=== PATIENT | male | born 1965 ===

== ENCOUNTER 2021-07-15 12:42 | Outpatient (REF) | payer MEDICAID, SELFPAY ==
--- NOTE | ~2021-07-15 | XR_ITS ---
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 Rule out active TB. COMPARISON: Chest radiograph dated from 01/07/2010. TECHNIQUE: 2 views of the chest were obtained. FINDINGS: Normal appearance of the cardiomediastinal silhouette. Mildly increased interstitial prominence since 2009 with a new nonspecific radiodensity in the right apex superior to the right clavicle no pleural effusion or pneumothorax.. No acute osseous abnormalities. The visualized upper abdomen is within normal limits. XR/XR chest 2V IMPRESSION: Increased interstitial prominence and new nonspecific radiodensity in the right apex. Recommend correlation with a CT of the chest. The report will be called to the ordering clinician by a [facility] Physician Associate Entertainment Editor.
[2021-07-16 11:56] LABS: Hepatitis B Viral DNA Qn - cp <1.00 NOT DETECTED Log IU/mL (NOT DETECTED); Hepatitis B Viral DNA Qn-IU/mL <10 NOT DETECTED IU/mL (NOT DETECTED)
== END 2021-07-15 12:43 | disposition home or self-care (01) ==
LOC: HO.XRAY 12:42
PROVIDERS: Absent Provider Family Medicine; PCP Family Medicine; Visit Provider Registered Nurse Community Health
DX: R76.12 Nonspecific reaction to cell mediated immunity measurement of gamma interferon antigen response without active tuberculosis (principal)
CPT/HCPCS: 36415; 71046; 87517

== ENCOUNTER 2021-07-22 08:23 | Outpatient (REF) | payer MEDICAID, SELFPAY ==
--- NOTE | ~2021-07-22 | XR_ITS ---
EXAMINATION: XR HAND, RIGHT CLINICAL INFORMATION: Pain COMPARISON: None TECHNIQUE: PA, lateral, and oblique views of the right hand. FINDINGS: There is postsurgical change with arthrodesis of the DIP joint of the third finger with pin and cerclage wires. 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 There is an old fracture of the distal tuft of the second finger and question old trauma to the distal tuft of the fourth finger as well. No acute fracture or dislocation. Joint spaces are otherwise normal. Soft tissues are unremarkable. XR/XR hand RT min 3V IMPRESSION: Arthrodesis of the DIP joint of the third finger.
== END 2021-07-22 08:24 | disposition home or self-care (01) ==
LOC: HO.HOSX 08:23
PROVIDERS: Visit Provider Physician Assistant
DX: M79.641 Pain in right hand (principal); Z96.9 Presence of functional implant, unspecified
CPT/HCPCS: 73130; 99202

== ENCOUNTER → 2021-08-11 09:58 | Outpatient (BNVA) | payer MEDICAID, SELFPAY | PROVIDERS: PCP Family Medicine; Visit Provider Orthopaedic Surgery | DX: M79.644 Pain in right finger(s) (principal); R20.0 Anesthesia of skin; R20.2 Paresthesia of skin; Z96.9 Presence of functional implant, unspecified | CPT/HCPCS: 99202 ==

== ENCOUNTER 2021-08-16 15:30 | Outpatient (REF) | payer MEDICAID, SELFPAY ==
--- NOTE | ~2021-08-16 | CT_ITS ---
EXAMINATION: CT CHEST WITHOUT CONTRAST CLINICAL INFORMATION: Positive TB test and abnormal chest x-ray COMPARISON: Previous chest x-ray 07/15/2021 TECHNIQUE: Multidetector volumetric CT imaging of the chest was done. Axial MIP volume rendering provided. Sagittal and coronal reformatted images were obtained. This CT examination was performed using dose optimization techniques as appropriate, variously including the following: *Automated exposure control *Adjustment of mA and/or kV according to patient size (this includes techniques or standardized protocols for targeted exams where dose is matched to indication/reason for exam; i.e. extremities or head) *Use of iterative reconstruction technique DLP: 160 mGy-cm FINDINGS: SPECIALTY DEVELOPMENT CONSULTANT: Unremarkable LUNGS: There is dependent increased attenuation probably representing dependent atelectasis. The lungs are otherwise clear. No evidence of interstitial lung disease is seen. MEDIASTINUM: The heart is upper normal in size. The mediastinum is otherwise normal. No hilar or mediastinal lymphadenopathy is seen. PLEURA: There is no pleural effusion. No pleural mass or thickening. AXILLA: No lymphadenopathy. UPPER ABDOMEN: Unremarkable. OSSEOUS STRUCTURES: Unremarkable. CT/CT chest wo con IMPRESSION: No evidence of TB in the chest. Fleischner guidelines were followed.
== END 2021-08-16 15:31 | disposition home or self-care (01) ==
LOC: HO.CT 15:30
PROVIDERS: PCP Family Medicine; Visit Provider Family Medicine
DX: R76.12 Nonspecific reaction to cell mediated immunity measurement of gamma interferon antigen response without active tuberculosis (principal); R93.89 Abnormal findings on diagnostic imaging of other specified body structures
CPT/HCPCS: 71250

== ENCOUNTER → 2022-03-02 10:18 | Outpatient (BNVA) | payer MEDICAID, SELFPAY | PROVIDERS: PCP Family Medicine; Visit Provider Internal Medicine | DX: R07.2 Precordial pain (principal); R94.31 Abnormal electrocardiogram [ECG] [EKG]; I10 Essential (primary) hypertension; E78.5 Hyperlipidemia, unspecified | CPT/HCPCS: 93005; 99202 ==

== ENCOUNTER 2022-03-22 | Outpatient (REF) | payer MEDICAID, SELFPAY ==
--- NOTE | ~2022-03-22 | XR_ITS ---
EXAMINATION: XR KNEE AP STANDING, BILATERAL XR KNEE, RIGHT CLINICAL INFORMATION: Pain bilateral knee. COMPARISON: None TECHNIQUE: AP bilateral knee standing. Right knee 2 views. FINDINGS: AP BILATERAL KNEE: The medial and lateral compartment joint space is maintained normal. No visible fracture, bony erosive changes or loose bodies. RIGHT KNEE: The patellofemoral compartment joint space is normal. No visible acute fracture, dislocation or subluxation seen. No bony erosive changes. XR/XR knee RT 2V IMPRESSION: 1. Unremarkable AP bilateral knee exam. 2. Unremarkable right knee exam. No visible acute fracture, dislocation or subluxation seen.
--- NOTE | ~2022-03-22 | XR_ITS ---
EXAMINATION: XR KNEE AP STANDING, BILATERAL XR KNEE, RIGHT CLINICAL INFORMATION: Pain bilateral knee. COMPARISON: None TECHNIQUE: AP bilateral knee standing. Right knee 2 views. FINDINGS: AP BILATERAL KNEE: The medial and lateral compartment joint space is maintained normal. No visible fracture, bony erosive changes or loose bodies. RIGHT KNEE: The patellofemoral compartment joint space is normal. No visible acute fracture, dislocation or subluxation seen. No bony erosive changes. XR/XR knee standing BI IMPRESSION: 1. Unremarkable AP bilateral knee exam. 2. Unremarkable right knee exam. No visible acute fracture, dislocation or subluxation seen.
== END 2022-03-22 00:01 ==
LOC: HO.HOSX
PROVIDERS: Visit Provider Physician Assistant
DX: M23.91 Unspecified internal derangement of right knee (principal)
CPT/HCPCS: 20610; 73560; 73565; 99202; J1040

== ENCOUNTER → 2022-04-14 10:46 | Outpatient (REF) | payer MEDICAID, SELFPAY ==
--- NOTE | 2022-04-14 10:54 | CA_ITS ---
Acquisition Time: 2022-04-14 11:01:47 Total Exercise Time: 00:11:29 Test Indications: Abnormal ECG CP Medications: ASA ATORVASTATIN CHLORTHALIDONE LISINOPRIL SERTRALINE ZOLPIDEM Protocol: ELIZABETH Max HR: 141 BPM 85% of Pred: 164 BPM Max BP: 162/092 mmHG Max Work Load: 13.4 METS Exercise stress test with exercise 11 min 29 sec of Elizabeth protocol, achieving 85% MPHR, 13.4 METs, with report of fatigue and need to stop, without chest discomfort, wiithout arrythmia, with normotensive response to exercise, without EKG changes meetng criteria for ischemia. Echo images obtained at rest and immediately post peak exercise. Definity contrast used. Test reviewed with Dr Moncada. Referred By: Moises Camilo Overread By: MAGDI NAVARRO
== END ==
LOC: HO.CARD 10:46
PROVIDERS: Visit Provider Internal Medicine
DX: R07.2 Precordial pain (principal)
CPT/HCPCS: 93350; Q9957

== ENCOUNTER → 2022-04-19 13:51 | Outpatient (REF) | payer MEDICAID, SELFPAY ==
--- NOTE | 2022-04-19 13:53 | CA_ITS ---
Transthoracic Echocardiogram Patient (Last, First, Middle): Wan Nino, Gender: Male Date of : 1965 Age: 56 Procedure Date: 04/19/2022 Procedure Type: Transthoracic Echocardiogram Location: OP Height: 180.34 cm Weight: 84.37 kg BSA: 2.04 m2 Heart Rate: bpm BP: 140 / 90 mmHg Gantry Crane Operator: AMIRAH Referring MD: Moises Camilo MD Class C Truck Driver: Jaron Escudero MD Symptoms: R07.2 - Precordial pain Study Quality: Adequate ECG Rhythm: Sinus Conclusions: - 1. Normal LV systolic function and normal diastolic filling pattern 2. Trivial aortic regurgitation 3. Normal RV systolic pressure 4. Mildly dilated ascending aorta at 3.8 cm 5. No pericardial effusion Findings Left Ventricle Normal left ventricular size, thickness, and systolic function. The visually estimated ejection fraction is between 60-65%. Spectral Doppler is indicative of a normal filling pattern. Peak GLS is -22.2%, within normal limits. Right Ventricle Normal right ventricular cavity size and systolic function. Atria The left atrium is likely dilated. There is no evidence of interatrial shunt. The right atrium is normal in size. Aortic Valve Normal aortic valve structure and function. There is no aortic valve stenosis. There is trace (trivial) aortic valve regurgitation. Mitral Valve Normal mitral valve structure and function. There is trace mitral valve regurgitation. There is no mitral valve stenosis. Pulmonic Valve The pulmonic valve is likely normal. There is trace pulmonic valve regurgitation. Tricuspid Valve Normal tricuspid valve structure. There is trace tricuspid valve regurgitation. The right ventricular systolic pressure is normal. The right ventricular systolic pressure is 26 mmHg. Normal right atrial pressure. There is no evidence of pulmonary hypertension. Great Vessels The pulmonary artery was not well visualized. There is mild dilatation of the ascending aorta measuring 3.80 cm. Venous The inferior vena cava is normal in size and collapses greater than 50% with inspiration. Pericardium/Pleural There is no evidence of pericardial effusion. Prior Study Comparison No prior study available for comparison. Measurements 2D Linear Measurements IVSd: 1.13 0.6-0.9/0.6-1.0 cm LVIDd: 5.01 3.9-5.3/4.2-5.9 cm LVIDd Index: 2.46 2.4-3.2/2.2-3.1 cm/m2 LVIDs: 2.55 2.0-3.6 cm LVPWd: 1.12 0.7-1.1 cm LA Diam: 3.60 2.7-3.8/3.0-4.0 cm LAIDs Index: 1.76 1.5-2.3 cm/m2 LV Mass: 267.18 67-162/88-224 g LV Mass Index: 130.97 43-95/49-115 g/m2 LVOT Diam: 2.50 3.0+(-)1.3 cm 2D Systolic Function EF 4C: 64.20 >55% EF 2C: 69.20 >55% EF BiP: 64.50 >55% Mitral Valve MV Pk E: 0.90 MV PK A: 0.66 MV Decel Time: 218.00 E/A: 1.40 E'Lateral: 11.00 E'Medial: 8.49 E/E' Med: 10.50 E/E' Lat: 8.10 PHT: 64.00 MVA PHT: 3.44 Decel Stanly: 4.10 Aortic Valve AoV Pk John: 1.31 AoV Mn John: 0.85 AoV VTI: 0.29 AoV Pk Grad: 7.00 Aov Mn Grad: 3.00 ZAYNAB Cont.VTI: 4.17 LVOT LVOT Pk John: 1.27 LVOT Mn John: 0.72 LVOT VTI: 0.24 LVOT Pk Grad: 6.00 LVOT Mn Grad: 3.00 LVOT Diam: 2.50 LVOT Area: 4.91 Diastolic Function MV Pk E: 0.90 MV Pk A: 0.66 E/A: 1.40 E'Medial: 8.49 E/E' Med: 10.50 E' Laterial: 11.00 E/E' Lat: 8.10 Right Ventricle TAPSE (mm): 32.10 TVS' John: 14.50 Tricuspid Valve TR Pk John: 2.38 TR Pk Grad: 23.00 RA Press: 3.00 RVSP: 26.00 Great Vessels Aorta Sinus of Valsalva: 3.64 2.0-3.[address] [place]: 3.04 1.7-3.4 cm Ao Asc: 3.80 2.1-3.4 cm Updated in Other Vendor System with Status of Final Jaron Escudero MD electronically signed on 04/20/2022 1:34:44 PM with status of Final
== END ==
LOC: HO.CARD 13:51
PROVIDERS: PCP Family Medicine; Visit Provider Internal Medicine
DX: R07.2 Precordial pain (principal); R94.31 Abnormal electrocardiogram [ECG] [EKG]; I10 Essential (primary) hypertension
CPT/HCPCS: 93306; 93356

== ENCOUNTER → 2022-04-20 13:56 | Outpatient (BNVA) | payer MEDICAID, SELFPAY | PROVIDERS: PCP Family Medicine; Referring Provider Family Medicine; Visit Provider Nurse Practitioner Family | DX: R07.2 Precordial pain (principal); R94.31 Abnormal electrocardiogram [ECG] [EKG]; I10 Essential (primary) hypertension; I77.810 Thoracic aortic ectasia; E78.5 Hyperlipidemia, unspecified | CPT/HCPCS: 99212 ==

== ENCOUNTER 2022-12-01 08:36 | Outpatient (REF) | payer MEDICAID, SELFPAY ==
[2022-12-01 12:27] LABS: HBS Num1 2.26 mIU/mL (0-7.99); ~Hepatitis B Surface Antibody NONREACTIVE (Nonreactive)
[2022-12-03 06:39] LABS: Varicella IgG Antibody >4000.00 index
== END 2022-12-01 08:37 | disposition home or self-care (01) ==
LOC: HO.HHCL 08:36
PROVIDERS: Visit Provider Family Medicine
DX: Z01.84 Encounter for antibody response examination (principal)
CPT/HCPCS: 36415; 86706; 86735; 86762; 86765; 86787

== ENCOUNTER 2023-02-27 12:00 | Outpatient (REF) | payer MEDICAID, SELFPAY | END 2023-02-27 12:01 | disposition home or self-care (01) | LOC: HO.HHCLNP 12:00 | PROVIDERS: Visit Provider General Practice | DX: Z13.89 Encounter for screening for other disorder (principal) ==

== ENCOUNTER 2023-02-28 13:34 | Outpatient (REF) | payer MEDICAID, SELFPAY ==
--- NOTE | ~2023-02-28 | US_ITS ---
EXAMINATION: US SCROTUM CLINICAL INFORMATION: Mass left testicle. COMPARISON: None available. TECHNIQUE: A sonogram of the scrotum was performed assessing becker-scale appearance and color Doppler flow. Spectral Doppler analysis of the arterial and venous flow were performed in the testes bilaterally. FINDINGS: RIGHT: Right testicle measures 5.1 x 3.5 x 3.2 cm, volume 29.9 mL. No focal testicular parenchymal lesions are visualized. Spectral Doppler analysis of the arterial and venous flow is normal in the right testis. There is mild diffuse heterogeneity of the echotexture of the testicle. A 0.7 cm cyst in the right epididymal head. Prominent right appendix testis. Right varicocele. Moderate right hydrocele. Right epididymal Doppler flow is normal. LEFT: Left testicle measures 4.0 x 2.0 x 2.6 cm, volume 10.9 mL. No focal testicular parenchymal lesions are visualized. Spectral Doppler analysis of the arterial and venous flow is normal in the left testis. There is mild diffuse heterogeneity of the echotexture of the testicle. A 1.7 x 1.2 x 1.2 cm cyst in the left epididymal head. Prominent left appendix testis. Moderate left hydrocele. Left varicocele. Left epididymal Doppler flow is normal. US/US scrotum IMPRESSION: 1. Bilateral varicoceles. 2. Bilateral moderate hydroceles. 3. Bilateral epididymal head cysts. 4. Bilateral prominent appendix testis. 5. Mild diffuse heterogeneity of the echotexture of the bilateral testicles. Reported left testicular mass is difficult to discern, possibly due to testicular heterogeneity. Urology consultation recommended to determine further management.
== END 2023-02-28 13:35 | disposition home or self-care (01) ==
LOC: HO.US 13:34
PROVIDERS: PCP Family Medicine; Visit Provider General Practice
DX: N50.89 Other specified disorders of the male genital organs (principal)
CPT/HCPCS: 76870; 87086

== ENCOUNTER 2023-07-12 13:31 | Outpatient (AMB) | payer MEDICAID, SELFPAY ==
--- NOTE | 2023-07-12 14:47 | A.OFFVIS_ITS ---
Intake Visit Reasons: varicocele/hydrocele Intake Note: NEW Patient presents today to established treatment for VARICOCELE: Meds- None Allergies to Antibiotic- No Known Allergies Blood Thinner- None Court Crier Required: No Accompanied by: Self / Same As Patient Allergies No Known Allergies Allergy (Verified 07/12/23 14:48) HPI Comments Details: Wan is here for evaluation due to abnormal scrotal ultrasound. Who states that he had pain in the left testicle in February and was treated with antibiotics which improved his symptoms. Denies any persistent testicular pain. He states that he feels that he is emptying his bladder adequately he has noticed that he goes more frequently during the daytime. Nocturia x1. He cut back on caffeine intake on his own he was drinking 4 cups of coffee during the day and cut back to 1 cup of coffee. Denies family history of Prostate cancer. Exam genitalia-uncircumcised, testicles, right hydrocele mild to moderate, mild left tenderness, left prominent varicocele. Prostate exam smooth mild to moderately enlarged Bladder scan PVR 35 mL. Urinalysis leukocytes negative blood negative. Plan--repeat scrotal ultrasound, PSA screening [facility] Medical History Hepatitis C Hyperlipidemia HTN (hypertension) Surgical History History of hand surgery Family History Mother HTN (hypertension) Father Cirrhosis Sister HTN (hypertension) Social History Household Members: Spouse Housing: House Alcohol intake: former Patient Tobacco Use Status: Current everyday Tobacco user Tobacco use type: Cigarette Cigarettes Per Day: 2 Years Smoked: 15 Current occupational status: unemployed Current occupation: rt hand Review of Systems Const All systems reviewed & are unremarkable except as noted in HPI and below Reports no additional complaints Eyes Reports no additional complaints ENT Reports no additional complaints Card Reports no additional complaints Resp Reports no additional complaints GI Reports no additional complaints Reports as per HPI Musc Reports no additional complaints Skin/Breast Reports system reviewed and no additional complaints, except as documented Neuro Reports no additional complaints Psych Reports no additional complaints Endo Reports no additional complaints Lopez/Lymph Reports no additional complaints Aller/Immun Reports no additional complaints Physical Exam Const General: healthy appearing, no acute distress and well developed Orientation/consciousness: patient oriented x3 HEENT Head: Yes normocephalic and Yes atraumatic Eyes Conjunctivae: conjunctivae normal Neck Neck: Yes normal visual inspection Chest Chest palpation & inspection: normal inspection of the chest Resp Effort & Inspection: normal respiratory effort Cardio Rate: regular rate GI Inspection: Yes normal to inspection Palpation (GI): Soft to palpation Other: genitalia-uncircumcised, testicles, right hydrocele mild to moderate, mild left tenderness, left prominent varicocele. Prostate exam smooth mild to moderately enlarged Penis: normal penis and uncircumcised Skin General skin exam: no rashes or lesions noted Neuro General: patient oriented x3 Extrem General: No pedal edema Psych Appearance: grossly normal Affect: normal affect Results AMB Urinalysis, Automated UA Leukoctes 0 Chintan/uL Last Edit by CARROLL Fairchild on 07/12/23 15:00 UA Nitrite Negative Last Edit by Juli Fierro Janice on 07/12/23 15:00 UA Urobilinogen 0.2 mg/dL Last Edit by CARROLL Fairchild on 07/12/23 15:0 0 UA Protein 15 mg/dL Last Edit by Juli Fierro [facility] on 07/12/23 15:00 UA pH 7.0 Last Edit by CARROLL Fairchild on 07/12/23 15:00 UA Blood 10 Leno/uL Last Edit by CARROLL Fairchild on 07/12/23 15:00 UA Specific [place] 1.010 Last Edit by CARROLL Fairchild on 07/12/23 15: 00 UA Ketone Negative Last Edit by CARROLL Fairchild on 07/12/23 15:00 UA Bilirubin 0 mg/dL Last Edit by CARROLL Fairchild on 07/12/23 15:00 UA Glucose 0 mg/dL Last Edit by CARROLL Fairchild on 07/12/23 15:00 Results Reviewed Results Reviewed: Laboratory Last Values Urine pH (Auto) 7.0 07/12/23 13:38 Specific [place] (Auto) 1.010 07/12/23 13:38 Urine Protein (Auto) 15 mg/dL 07/12/23 13:38 Glucose (UA)(Auto) 0 mg/dL 07/12/23 13:38 Urine Ketones (Auto) Negative 07/12/23 13:38 Urine Blood (Auto) 10 Leno/uL 07/12/23 13:38 Urine Nitrite (Auto) Negative 07/12/23 13:38 Urine Bilirubin (Auto) 0 mg/dL 07/12/23 13:38 Urine Urobilinogen (Auto) 0.2 mg/dL 07/12/23 13:38 Leukocyte Esterase (Auto) 0 Chintan/uL 07/12/23 13:38 Date of Service: 02/28/23 EXAMINATION: US SCROTUM CLINICAL INFORMATION: Mass left testicle. COMPARISON: None available. TECHNIQUE: A sonogram of the scrotum was performed assessing becker-scale appearance and color Doppler flow. Spectral Doppler analysis of the arterial and venous flow were performed in the testes bilaterally. FINDINGS: RIGHT: Right testicle measures 5.1 x 3.5 x 3.2 cm, volume 29.9 mL. No focal testicular parenchymal lesions are visualized. Spectral Doppler analysis of the arterial and venous flow is normal in the right testis. There is mild diffuse heterogeneity of the echotexture of the testicle. A 0.7 cm cyst in the right epididymal head. Prominent right appendix testis. Right varicocele. Moderate right hydrocele. Right epididymal Doppler flow is normal. LEFT: Left testicle measures 4.0 x 2.0 x 2.6 cm, volume 10.9 mL. No focal testicular parenchymal lesions are visualized. Spectral Doppler analysis of the arterial and venous flow is normal in the left testis. There is mild diffuse heterogeneity of the echotexture of the testicle. A 1.7 x 1.2 x 1.2 cm cyst in the left epididymal head. Prominent left appendix testis. Moderate left hydrocele. Left varicocele. Left epididymal Doppler flow is normal. IMPRESSION: 1. Bilateral varicoceles. 2. Bilateral moderate hydroceles. 3. Bilateral epididymal head cysts. 4. Bilateral prominent appendix testis. 5. Mild diffuse heterogeneity of the echotexture of the bilateral testicles. Reported left testicular mass is difficult to discern, possibly due to testicular heterogeneity. Assessment & Plan Assessment & Plan (1) Screening PSA (prostate specific antigen): Code(s): Z12.5 - Encounter for screening for malignant neoplasm of prostate Category: Medical Plan Plan--repeat scrotal ultrasound, PSA screening Orders: Orders AMB Urinalysis Automated 07/12/23 Z13.9 - Encounter for screening, unspecified Patient Instructions: The patient had an opportunity to ask questions regarding treatment plan. All questions were answered. Imaging, Laboratory studies and physical exam results were discussed and reviewed in detail. No major barriers to understanding were identified. The patient expressed understanding and agreement with the above treatment plan. The patient is aware they should contact our office by phone for worsening of their current condition or the appearance of new symptoms. Compliance is encouraged with any medications and followup testing that is ordered. It is a privilege to be allowed the opportunity to participate in the urologic care of your patient. If you have any questions or concerns regarding treatment for the above conditions please do not hesitate to contact me. The office telephone contact is [phone]. This note is constructed in part using voice recognition software. While every effort has been made to ensure accuracy offset printer errors may have been included. Yours sincerely, Lilia Vegas MD Coding Level of Care Code New Pt Level 4 (46646) Diagnoses Screening PSA (prostate specific antigen) Z12.5
== END 2023-07-12 15:45 | disposition home or self-care (01) ==
PROVIDERS: PCP Family Medicine; Visit Provider Urology
DX: Z12.5 Encounter for screening for malignant neoplasm of prostate (principal)
CPT/HCPCS: 99204

== ENCOUNTER → 2023-07-12 13:31 | Outpatient (BNVA) | payer MEDICAID, SELFPAY | PROVIDERS: PCP Family Medicine; Visit Provider Urology | DX: Z12.5 Encounter for screening for malignant neoplasm of prostate (principal) | CPT/HCPCS: 81003; 99202 ==

== ENCOUNTER 2023-08-14 15:36 | Outpatient (REF) | payer MEDICAID, SELFPAY ==
--- NOTE | ~2023-08-14 | US_ITS ---
EXAMINATION: US SCROTUM CLINICAL INFORMATION: Scrotal varices. COMPARISON: Scrotal ultrasound 02/28/2023. TECHNIQUE: A sonogram of the scrotum was performed assessing becker-scale appearance and color Doppler flow. Spectral Doppler analysis of the arterial and venous flow were performed in the testes bilaterally. FINDINGS: RIGHT: Right testicle measures 4.8 x 2.7 x 3.6 cm, volume 24.7 mL. No focal testicular parenchymal lesions are visualized. Spectral Doppler analysis of the arterial and venous flow is increased in the right testis. Right epididymal head is within normal limits with epididymal head cyst measuring 7 mm. Right epididymal Doppler flow is normal. Moderate right hydrocele. Small right varicocele. LEFT: Left testicle measures 3.9 x 1.8 x 2.7 cm, volume 10.3 mL. Left testicle is heterogeneous in appearance. Spectral Doppler analysis of the arterial and venous flow is increased in the left testis. Left epididymal head is normal in size. Left epididymal head cyst measuring up to 1.7 cm. Left epididymal Doppler flow is normal. Small left hydrocele. Moderate left varicocele. US/US scrotum IMPRESSION: * Heterogeneous appearance of the left testicle may reflect sequelae of prior infection or inflammation. Recommend urologic consult. * Moderate bilateral hydroceles. * Moderate left and small right varicocele. * Right epididymal head cyst measuring 7 mm.
== END 2023-08-14 15:37 | disposition home or self-care (01) ==
LOC: HO.HMGCX 15:36
PROVIDERS: PCP Family Medicine; Visit Provider Urology
DX: I86.1 Scrotal varices (principal)
CPT/HCPCS: 76870

== ENCOUNTER 2023-10-09 08:18 | Outpatient (REF) | payer MEDICAID, SELFPAY ==
[2023-10-09 10:57] LABS: PSA,Total (Free>4and<10) 1.61 ng/mL (0.00-4.00)
== END 2023-10-09 08:19 | disposition home or self-care (01) ==
LOC: HO.LAB 08:18
PROVIDERS: PCP Family Medicine; Visit Provider Urology
DX: Z12.5 Encounter for screening for malignant neoplasm of prostate (principal)
CPT/HCPCS: 36415; 84153

== ENCOUNTER 2023-10-11 13:38 | Outpatient (AMB) | payer MEDICAID, SELFPAY ==
--- NOTE | 2023-10-11 13:41 | A.OFFVIS_ITS ---
Intake Visit Reasons: 3M/US/PSA Intake Note: presents tnyox2s/US/PSA Meds- None Allergies to Antibiotic- No Known Allergies Blood Thinner- None Cell Tuber Hand Required: No Accompanied by: Self / Same As Patient Allergies No Known Allergies Allergy (Verified 10/11/23 13:41) Medication List - Last Reconciled 10/11/23 by Lilia Vegas MD acetaminophen (Tylenol Extra Strength) 500 mg PO Q6H PRN aspirin 81 mg PO DAILY atorvastatin 40 mg PO DAILY chlorthalidone 25 mg PO DAILY levofloxacin 500 mg PO Q24H 7 days lisinopril 20 mg PO DAILY sertraline 50 mg PO QAM zolpidem 10 mg PO BEDTIME HPI Comments Details: 10/11/2023--Wan is here for follow-up. He was initially evaluated on due to left testicular pain and abnormal scrotal ultrasound, 02/28/2023. He was sent for repeat ultrasound and placed on antibiotics. He states that he gets occasional discomfort in the left testicle but has been wearing supportive scrotal underwear which is helpful. Review of scrotal ultrasound 08/14/23--Heterogeneous appearance of the left testicle may reflect sequelae of prior infection or inflammation. Moderate bilateral hydroceles. Moderate left and small right varicocele. Right epididymal head cyst measuring 7 mm. On examination-scrotal swelling due to bilateral hydroceles, testicles are nontender. Left testicle no hard or discrete masses palpated. Will repeat course of antibiotics, Levaquin 500 mg for 7 days, and repeat ultrasound in 3 months, will check testicular tumor markers. Review of chart: 07/12/23--Wna is here for evaluation due to abnormal scrotal ultrasound. Who states that he had pain in the left testicle in February and was treated with antibiotics which improved his symptoms. Denies any persistent testicular pain. He states that he feels that he is emptying his bladder adequately he has noticed that he goes more frequently during the daytime. Nocturia x1. He cut back on caffeine intake on his own he was drinking 4 cups of coffee during the day and cut back to 1 cup of coffee. Denies family history of Prostate cancer. Exam genitalia-uncircumcised, testicles, right hydrocele mild to moderate, mild left tenderness, left prominent varicocele. Prostate exam smooth mild to moderately enlarged Bladder scan PVR 35 mL. Urinalysis leukocytes negative blood negative. Plan--repeat scrotal ultrasound, PSA screening [facility] Medical History Hepatitis C Hyperlipidemia HTN (hypertension) Surgical History History of hand surgery Family History Mother HTN (hypertension) Father Cirrhosis Sister HTN (hypertension) Social History Household Members: Spouse Housing: House Alcohol intake: former Patient Tobacco Use Status: Current everyday Tobacco user Tobacco use type: Cigarette Cigarettes Per Day: 2 Years Smoked: 15 Current occupational status: unemployed Current occupation: rt hand Review of Systems Const All systems reviewed & are unremarkable except as noted in HPI and below Reports no additional complaints Eyes Reports no additional complaints ENT Reports no additional complaints Card Reports no additional complaints Resp Reports no additional complaints GI Reports no additional complaints Reports as per HPI Musc Reports no additional complaints Skin/Breast Reports system reviewed and no additional complaints, except as documented Neuro Reports no additional complaints Psych Reports no additional complaints Endo Reports no additional complaints Lopez/Lymph Reports no additional complaints Aller/Immun Reports no additional complaints Results AMB Urinalysis, Automated UA Leukoctes 0 Chintan/uL Last Edit by DENISE Infante on 10/11/23 13:51 UA Nitrite Negative Last Edit by DENISE Infante on 10/11/23 13:51 UA Urobilinogen 0.2 mg/dL Last Edit by DENISE Infante on 10/11/23 13:5 1 UA Protein 15 mg/dL Last Edit by DENISE Infante on 10/11/23 13:51 UA pH 6.0 Last Edit by DENISE Infante on 10/11/23 13:51 UA Blood 200 Leno/uL Last Edit by DENISE Infante on 10/11/23 13:51 UA Specific [place] 1.020 Last Edit by DENISE Infante on 10/11/23 13: 51 UA Ketone Negative Last Edit by DENISE Infante on 10/11/23 13:51 UA Bilirubin 0 mg/dL Last Edit by DENISE Infante on 10/11/23 13:51 UA Glucose 0 mg/dL Last Edit by DENISE Infante on 10/11/23 13:51 Results Reviewed Results Reviewed: Laboratory Last Values Urine pH (Auto) 6.0 10/11/23 13:50 Specific [place] (Auto) 1.020 10/11/23 13:50 Urine Protein (Auto) 15 mg/dL 10/11/23 13:50 Glucose (UA)(Auto) 0 mg/dL 10/11/23 13:50 Urine Ketones (Auto) Negative 10/11/23 13:50 Urine Blood (Auto) 200 Leno/uL 10/11/23 13:50 Urine Nitrite (Auto) Negative 10/11/23 13:50 Urine Bilirubin (Auto) 0 mg/dL 10/11/23 13:50 Urine Urobilinogen (Auto) 0.2 mg/dL 10/11/23 13:50 Leukocyte Esterase (Auto) 0 Chintan/uL 10/11/23 13:50 Date of Service: 08/14/23 In 20 EXAMINATION: US SCROTUM CLINICAL INFORMATION: Scrotal varices. COMPARISON: Scrotal ultrasound 02/28/2023. TECHNIQUE: A sonogram of the scrotum was performed assessing becker-scale appearance and color Doppler flow. Spectral Doppler analysis of the arterial and venous flow were performed in the testes bilaterally. FINDINGS: RIGHT: Right testicle measures 4.8 x 2.7 x 3.6 cm, volume 24.7 mL. No focal testicular parenchymal lesions are visualized. Spectral Doppler analysis of the arterial and venous flow is increased in the right testis. Right epididymal head is within normal limits with epididymal head cyst measuring 7 mm. Right epididymal Doppler flow is normal. Moderate right hydrocele. Small right varicocele. LEFT: Left testicle measures 3.9 x 1.8 x 2.7 cm, volume 10.3 mL. Left testicle is heterogeneous in appearance. Spectral Doppler analysis of the arterial and venous flow is increased in the left testis. Left epididymal head is normal in size. Left epididymal head cyst measuring up to 1.7 cm. Left epididymal Doppler flow is normal. Small left hydrocele. Moderate left varicocele. IMPRESSION: * Heterogeneous appearance of the left testicle may reflect sequelae of prior infection or inflammation. Recommend urologic consult. * Moderate bilateral hydroceles. * Moderate left and small right varicocele. * Right epididymal head cyst measuring 7 mm. Date of Service: 02/28/23 EXAMINATION: US SCROTUM CLINICAL INFORMATION: Mass left testicle. COMPARISON: None available. TECHNIQUE: A sonogram of the scrotum was performed assessing becker-scale appearance and color Doppler flow. Spectral Doppler analysis of the arterial and venous flow were performed in the testes bilaterally. FINDINGS: RIGHT: Right testicle measures 5.1 x 3.5 x 3.2 cm, volume 29.9 mL. No focal testicular parenchymal lesions are visualized. Spectral Doppler analysis of the arterial and venous flow is normal in the right testis. There is mild diffuse heterogeneity of the echotexture of the testicle. A 0.7 cm cyst in the right epididymal head. Prominent right appendix testis. Right varicocele. Moderate right hydrocele. Right epididymal Doppler flow is normal. LEFT: Left testicle measures 4.0 x 2.0 x 2.6 cm, volume 10.9 mL. No focal testicular parenchymal lesions are visualized. Spectral Doppler analysis of the arterial and venous flow is normal in the left testis. There is mild diffuse heterogeneity of the echotexture of the testicle. A 1.7 x 1.2 x 1.2 cm cyst in the left epididymal head. Prominent left appendix testis. Moderate left hydrocele. Left varicocele. Left epididymal Doppler flow is normal. IMPRESSION: 1. Bilateral varicoceles. 2. Bilateral moderate hydroceles. 3. Bilateral epididymal head cysts. 4. Bilateral prominent appendix testis. 5. Mild diffuse heterogeneity of the echotexture of the bilateral testicles. Reported left testicular mass is difficult to discern, possibly due to testicular heterogeneity. Assessment & Plan Assessment & Plan (1) Abnormal ultrasound: Code(s): R93.89 - Abnormal findings on diagnostic imaging of other specified body structures Category: Medical (2) Left testicular pain: Code(s): N50.812 - Left testicular pain Category: Medical (3) Testicular abnormality: Code(s): N50.9 - Disorder of male genital organs, unspecified Category: Medical Plan Will repeat course of antibiotics, Levaquin 500 mg for 7 days, and repeat ultrasound in 3 months, will check testicular tumor markers. Orders: Orders Alkaline Phosphatase Today N50.9 - Disorder of male genital organs, unspecified AMB Urinalysis Automated Today Z13.9 - Encounter for screening, unspecified AFP Quad Screen Today N50.9 - Disorder of male genital organs, unspecified HCG Tumor Marker Today N50.9 - Disorder of male genital organs, unspecified US scrotum 3 Months N50.812 - Left testicular pain, N50.9 - Disorder of male genital organs, unspecified, R93.89 - Abnormal findings on diagnostic imaging of other specified body structures Medications: New levofloxacin 500 mg PO Q24H 7 days 7 tabs 0RF Patient Instructions: The patient had an opportunity to ask questions regarding treatment plan. The patient expressed understanding and agreement with the above treatment plan. The patient is aware they should contact our office by phone for worsening of their current condition or the appearance of new symptoms. Compliance is encouraged with any medications and followup testing that is ordered. It is a privilege to be allowed the opportunity to participate in the urologic care of your patient. If you have any questions or concerns regarding treatment for the above conditions please do not hesitate to contact me. The office telephone contact is [phone]. This note is constructed in part using voice recognition software. While every effort has been made to ensure accuracy lining stamper errors may have been included. Yours sincerely, Lilia Vegas MD Coding Level of Care Code Est Pt Level 4 (53329) Diagnoses Abnormal ultrasound R93.89 Left testicular pain N50.812 Testicular abnormality N50.9
== END 2023-10-11 14:41 | disposition home or self-care (01) ==
PROVIDERS: PCP Family Medicine; Visit Provider Urology
DX: R93.89 Abnormal findings on diagnostic imaging of other specified body structures (principal); N50.812 Left testicular pain; N50.9 Disorder of male genital organs, unspecified; Z13.9 Encounter for screening, unspecified
CPT/HCPCS: 99214

== ENCOUNTER → 2023-10-11 13:38 | Outpatient (BNVA) | payer MEDICAID, SELFPAY | PROVIDERS: PCP Family Medicine; Visit Provider Urology | DX: R93.89 Abnormal findings on diagnostic imaging of other specified body structures (principal); N50.812 Left testicular pain; N50.9 Disorder of male genital organs, unspecified | CPT/HCPCS: 81003; 99212 ==

== ENCOUNTER 2023-12-11 15:02 | Outpatient (REF) | payer MEDICAID, SELFPAY ==
[2023-12-11 17:21] LABS: Alanine Aminotransferase 20 U/L (0-40); Albumin Level 4.5 g/dL (3.5-5.0); Alkaline Phosphatase 61 U/L (39-117); Anion Gap 14 (12-20); Aspartate Amino Transferase 19 U/L (5-37); Bilirubin Total 0.4 mg/dL (0.0-1.0); Blood Urea Nitrogen 11 mg/dL (9-16); Calcium 9.8 mg/dL (8.4-10.2); Carbon Dioxide 28 mmol/L (22-29); Chloride 106 mmol/L (96-108); Cholesterol 183 mg/dL (<200); Estimated Glomerular Filt Rate > 60; Glucose Random 88 mg/dL (60-115); HDL Cholesterol 41 mg/dL (>40); LDL Cholesterol Calculated 111 mg/dL (<100); Potassium 4.2 mmol/L (3.3-5.1); Sodium 144 mmol/L (135-145); Total Protein 7.6 g/dL (6.5-8.0); Triglycerides 157 mg/dL (<150)
[2023-12-11 18:54] LABS: Reflex LDLD? No
[2023-12-12 05:31] LABS: Estimated Average Glucose 117 mg/dL; Hemoglobin A1c % 5.7 % (<6.0)
== END 2023-12-11 15:03 | disposition home or self-care (01) ==
LOC: HO.HHCL 15:02
PROVIDERS: Visit Provider Family Medicine
DX: Z13.1 Encounter for screening for diabetes mellitus (principal); I10 Essential (primary) hypertension; E78.5 Hyperlipidemia, unspecified
CPT/HCPCS: 36415; 80053; 80061; 83036

== ENCOUNTER 2024-01-12 08:24 | Outpatient (REF) | payer MEDICAID, SELFPAY ==
--- NOTE | ~2024-01-12 | US_ITS ---
EXAMINATION: US SCROTUM CLINICAL INFORMATION: Disorder of male genital organs, unspecified. Pain in left testicle. COMPARISON: Ultrasound scrotum 08/14/2023. TECHNIQUE: A sonogram of the scrotum was performed assessing becker-scale appearance and color Doppler flow. Spectral Doppler analysis of the arterial and venous flow were performed in the testes bilaterally. FINDINGS: RIGHT: Right testicle measures 5.4 x 3.0 x 3.7 cm, volume 31.4 mL. No focal testicular parenchymal lesions are visualized. An appendix testis is seen. Spectral Doppler analysis of the arterial and venous flow is normal in the right testis. Right epididymal head is normal in size with a 7 mm cyst. No right varicocele is seen. Right epididymal Doppler flow is normal. A moderate right-sided hydrocele is present. LEFT: Left testicle measures 4.1 x 2.2 x 2.5 cm, volume 11.8 mL, significantly smaller than the right. Echotexture is heterogeneous but no focal testicular parenchymal lesions are visualized. Spectral Doppler analysis of the arterial and venous flow is normal in the left testis. Left epididymal head is normal in size with multiple cysts the largest measuring 1.8 cm. A 3 mm calcification is seen in the left epididymal head. Left epididymal Doppler flow is normal. A small left-sided hydrocele is present. A left-sided varicocele is present with veins as large as 0.5 cm. US/US scrotum IMPRESSION: 1. The left testicle is significantly smaller than the right and is heterogeneous in echotexture. 2. Bilateral epididymal cysts. 3. Bilateral hydroceles, right greater than left. 4. Left-sided varicocele. Electronically signed by: Palmer Sherman MD 03/06/2024 11:04 PM CHARLENE
== END 2024-01-12 08:25 | disposition home or self-care (01) ==
LOC: HO.HMGCX 08:24
PROVIDERS: PCP Family Medicine; Visit Provider Urology
DX: N50.9 Disorder of male genital organs, unspecified (principal); R93.89 Abnormal findings on diagnostic imaging of other specified body structures; N50.812 Left testicular pain
CPT/HCPCS: 76870

== ENCOUNTER 2024-04-24 09:28 | Outpatient (REF) | payer MEDICAID, SELFPAY ==
--- NOTE | ~2024-04-24 | US_ITS ---
CLINICAL HISTORY: N50.9 - Disorder of male genital organs, unspecified LT TESTICULAR PAIN Exam: Ultrasound of the testes and scrotum with duplex evaluation of the testicles. Comparison: None. Findings: Right testicle measures 5.0 x 2.5 x 4.2 cm in size. Right testicle is of normal echotexture without mass lesion. Epididymal head cyst measures 8 mm in size. Right epididymis is otherwise unremarkable. Large right hydrocele with internal debris. Left testicle measures 4.0 x 1.8 x 2.3 cm in size. Left testicle is of normal echotexture without mass lesion. Epididymal head cyst measures 16 mm in size. Left epididymis is otherwise unremarkable. Large left varicocele. No scrotal wall thickening. Duplex evaluation of the testicles was performed. This included real-time grayscale, color spectral Doppler analysis, and color Doppler flow imaging. Documented blood flow to both testicles. Impression: 1. Large right hydrocele. 2. Left-sided varicocele. 3. Simple bilateral epididymal head cysts. 4. No testicular masses. This document has been electronically signed by: Drew Goddard MD on 04/25/2024 09:47:01
== END 2024-04-24 09:29 | disposition home or self-care (01) ==
LOC: HO.HMGCX 09:28
PROVIDERS: PCP Family Medicine; Visit Provider Urology
DX: N50.9 Disorder of male genital organs, unspecified (principal); N50.812 Left testicular pain; R93.89 Abnormal findings on diagnostic imaging of other specified body structures; I86.1 Scrotal varices; N43.3 Hydrocele, unspecified; N50.3 Cyst of epididymis
CPT/HCPCS: 76870

== ENCOUNTER → 2024-04-24 09:35 | Outpatient (BNV) | payer MEDICAID, SELFPAY | PROVIDERS: PCP Family Medicine; Visit Provider Radiology Diagnostic Radiology | DX: I86.1 Scrotal varices (principal); N50.3 Cyst of epididymis; N43.3 Hydrocele, unspecified | CPT/HCPCS: 76870; 93976 ==

== ENCOUNTER 2024-05-06 14:52 | Outpatient (AMB) | payer MEDICAID, SELFPAY ==
--- NOTE | 2024-05-06 15:02 | MHC.OFFVIS ---
Intake Visit Reasons: follow up/US Intake Note: Patient is present for US F/U Urology Medication:NONE Antibiotic Allergy:NONE Blood Thinner:ASPIRIN Medical Reception Required: No Allergies No Known Allergies Allergy (Verified 05/06/24 15:03) Medication List - Last Reconciled 05/06/24 by Lilia Vegas MD acetaminophen (Tylenol Extra Strength) 500 mg PO Q6H PRN aspirin 81 mg PO DAILY atorvastatin 40 mg PO DAILY chlorthalidone 25 mg PO DAILY levofloxacin 500 mg PO Q24H 7 days lisinopril 20 mg PO DAILY sertraline 50 mg PO QAM zolpidem 10 mg PO BEDTIME HPI Comments Details: 05/06/24--Wan is here for follow-up, testicular pain. Follow-up ultrasound moderate right hydrocele left varicocele. The patient states he has been doing well he did buy supportive underwear and has had less episodes of pain. He denies significant swelling that is bothersome. Review of chart: PSA 10/09/2023--1.61 ng/mL. Plan to monitor conservatively repeat scrotal ultrasound in 1 year, PSA screening. 10/11/2023--Wan is here for follow-up. He was initially evaluated on 07/12/2023 due to left testicular pain and abnormal scrotal ultrasound, 02/28/2023. He was sent for repeat ultrasound and placed on antibiotics. He states that he gets occasional discomfort in the left testicle but has been wearing supportive scrotal underwear which is helpful. Review of scrotal ultrasound 08/14/23--Heterogeneous appearance of the left testicle may reflect sequelae of prior infection or inflammation. Moderate bilateral hydroceles. Moderate left and small right varicocele. Right epididymal head cyst measuring 7 mm. On examination-scrotal swelling due to bilateral hydroceles, testicles are nontender. Left testicle no hard or discrete masses palpated. Will repeat course of antibiotics, Levaquin 500 mg for 7 days, and repeat ultrasound in 3 months, will check testicular tumor markers. 07/12/23--Wan is here for evaluation due to abnormal scrotal ultrasound. Who states that he had pain in the left testicle in February and was treated with antibiotics which improved his symptoms. Denies any persistent testicular pain. He states that he feels that he is emptying his bladder adequately he has noticed that he goes more frequently during the daytime. Nocturia x1. He cut back on caffeine intake on his own he was drinking 4 cups of coffee during the day and cut back to 1 cup of coffee. Denies family history of Prostate cancer. Exam genitalia-uncircumcised, testicles, right hydrocele mild to moderate, mild left t and enderness, left prominent varicocele. Prostate exam smooth mild to moderately enlarged Bladder scan PVR 35 mL. Urinalysis leukocytes negative blood negative. Plan--repeat scrotal ultrasound, PSA screening [facility] Medical History Hepatitis C Hyperlipidemia HTN (hypertension) Surgical History History of hand surgery Family History Mother HTN (hypertension) Father Cirrhosis Sister HTN (hypertension) Social History Household Members: Spouse Housing: House Alcohol intake: former Patient Tobacco Use Status: Current everyday Tobacco user Tobacco use type: Cigarette Cigarettes Per Day: 2 Years Smoked: 15 Current occupational status: unemployed Current occupation: rt hand Review of Systems Const All systems reviewed & are unremarkable except as noted in HPI and below Reports no additional complaints Eyes Reports no additional complaints ENT Reports no additional complaints Card Reports no additional complaints Resp Reports no additional complaints GI Reports no additional complaints Reports as per HPI Musc Reports no additional complaints Skin/Breast Reports system reviewed and no additional complaints, except as documented Neuro Reports no additional complaints Psych Reports no additional complaints Endo Reports no additional complaints Lopez/Lymph Reports no additional complaints Aller/Immun Reports no additional complaints Results AMB Urinalysis, Automated UA Leukoctes 0 Chintan/uL Last Edit by DENISE Infante on 05/06/24 15:12 UA Nitrite Negative Last Edit by DENISE Infante on 05/06/24 15:12 UA Urobilinogen 0.2 mg/dL Last Edit by DENISE Infante on 05/06/24 15:12 UA Protein 15 mg/dL Last Edit by DENISE Infante on 05/06/24 15:12 UA pH 6.5 Last Edit by DENISE Infante on 05/06/24 15:12 UA Blood 80 Leno/uL Last Edit by DENISE Infante on 05/06/24 15:12 UA Specific [place] 1.015 Last Edit by DENISE Infante on 05/06/24 15:12 UA Ketone Negative Last Edit by DENISE Infante on 05/06/24 15:12 UA Bilirubin 0 mg/dL Last Edit by DENISE Infante on 05/06/24 15:12 UA Glucose 0 mg/dL Last Edit by DENISE Infante on 05/06/24 15:12 Results Reviewed Results Reviewed: Laboratory Last Values Urine pH (Auto) 6.5 05/06/24 15:11 Specific [place] (Auto) 1.015 05/06/24 15:11 Urine Protein (Auto) 15 mg/dL 05/06/24 15:11 Glucose (UA)(Auto) 0 mg/dL 05/06/24 15:11 Urine Ketones (Auto) Negative 05/06/24 15:11 Urine Blood (Auto) 80 Leno/uL 05/06/24 15:11 Urine Nitrite (Auto) Negative 05/06/24 15:11 Urine Bilirubin (Auto) 0 mg/dL 05/06/24 15:11 Urine Urobilinogen (Auto) 0.2 mg/dL 05/06/24 15:11 Leukocyte Esterase (Auto) 0 Chintan/uL 05/06/24 15:11 Date of Service: 04/24/24 CLINICAL HISTORY: N50.9 - Disorder of male genital organs, unspecified LT TESTICULAR PAIN Exam: Ultrasound of the testes and scrotum with duplex evaluation of the testicles. Comparison: None. Findings: Right testicle measures 5.0 x 2.5 x 4.2 cm in size. Right testicle is of normal echotexture without mass lesion. Epididymal head cyst measures 8 mm in size. Right epididymis is otherwise unremarkable. Large right hydrocele with internal debris. Left testicle measures 4.0 x 1.8 x 2.3 cm in size. Left testicle is of normal echotexture without mass lesion. Epididymal head cyst measures 16 mm in size. Left epididymis is otherwise unremarkable. Large left varicocele. No scrotal wall thickening. Duplex evaluation of the testicles was performed. This included real-time grayscale, color spectral Doppler analysis, and color Doppler flow imaging. Documented blood flow to both testicles. Impression: 1. Large right hydrocele. 2. Left-sided varicocele. 3. Simple bilateral epididymal head cysts. 4. No testicular masses. Date of Service: 08/14/23 In 20 EXAMINATION: US SCROTUM CLINICAL INFORMATION: Scrotal varices. COMPARISON: Scrotal ultrasound 02/28/2023. TECHNIQUE: A sonogram of the scrotum was performed assessing becker-scale appearance and color Doppler flow. Spectral Doppler analysis of the arterial and venous flow were performed in the testes bilaterally. FINDINGS: RIGHT: Right testicle measures 4.8 x 2.7 x 3.6 cm, volume 24.7 mL. No focal testicular parenchymal lesions are visualized. Spectral Doppler analysis of the arterial and venous flow is increased in the right testis. Right epididymal head is within normal limits with epididymal head cyst measuring 7 mm. Right epididymal Doppler flow is normal. Moderate right hydrocele. Small right varicocele. LEFT: Left testicle measures 3.9 x 1.8 x 2.7 cm, volume 10.3 mL. Left testicle is heterogeneous in appearance. Spectral Doppler analysis of the arterial and venous flow is increased in the left testis. Left epididymal head is normal in size. Left epididymal head cyst measuring up to 1.7 cm. Left epididymal Doppler flow is normal. Small left hydrocele. Moderate left varicocele. IMPRESSION: * Heterogeneous appearance of the left testicle may reflect sequelae of prior infection or inflammation. Recommend urologic consult. * Moderate bilateral hydroceles. * Moderate left and small right varicocele. * Right epididymal head cyst measuring 7 mm. Date of Service: 02/28/23 EXAMINATION: US SCROTUM CLINICAL INFORMATION: Mass left testicle. COMPARISON: None available. TECHNIQUE: A sonogram of the scrotum was performed assessing becker-scale appearance and color Doppler flow. Spectral Doppler analysis of the arterial and venous flow were performed in the testes bilaterally. FINDINGS: RIGHT: Right testicle measures 5.1 x 3.5 x 3.2 cm, volume 29.9 mL. No focal testicular parenchymal lesions are visualized. Spectral Doppler analysis of the arterial and venous flow is normal in the right testis. There is mild diffuse heterogeneity of the echotexture of the testicle. A 0.7 cm cyst in the right epididymal head. Prominent right appendix testis. Right varicocele. Moderate right hydrocele. Right epididymal Doppler flow is normal. LEFT: Left testicle measures 4.0 x 2.0 x 2.6 cm, volume 10.9 mL. No focal testicular parenchymal lesions are visualized. Spectral Doppler analysis of the arterial and venous flow is normal in the left testis. There is mild diffuse heterogeneity of the echotexture of the testicle. A 1.7 x 1.2 x 1.2 cm cyst in the left epididymal head. Prominent left appendix testis. Moderate left hydrocele. Left varicocele. Left epididymal Doppler flow is normal. IMPRESSION: 1. Bilateral varicoceles. 2. Bilateral moderate hydroceles. 3. Bilateral epididymal head cysts. 4. Bilateral prominent appendix testis. 5. Mild diffuse heterogeneity of the echotexture of the bilateral testicles. Reported left testicular mass is difficult to discern, possibly due to testicular heterogeneity. Assessment & Plan Assessment & Plan (1) Left testicular pain: Code(s): N50.812 - Left testicular pain Category: Medical (2) Left varicocele: Code(s): I86.1 - Scrotal varices Category: Medical (3) Hydrocele, right: Code(s): N43.3 - Hydrocele, unspecified Category: Medical (4) Screening PSA (prostate specific antigen): Code(s): Z12.5 - Encounter for screening for malignant neoplasm of prostate Category: Medical Plan Follow-up in 1 year, repeat scrotal ultrasound and PSA screening Orders: Orders AMB Urinalysis Automated Today Z13.9 - Encounter for screening, unspecified US scrotum 11 Months I86.1 - Scrotal varices, N43.3 - Hydrocele, unspecified PSA,Total (Free>4and<10) 11 Months Z12.5 - Encounter for screening for malignant neoplasm of prostate Patient Instructions: The patient had an opportunity to ask questions regarding treatment plan. The patient expressed understanding and agreement with the above treatment plan. The patient is aware they should contact our office by phone for worsening of their current condition or the appearance of new symptoms. Compliance is encouraged with any medications and followup testing that is ordered. It is a privilege to be allowed the opportunity to participate in the urologic care of your patient. If you have any questions or concerns regarding treatment for the above conditions please do not hesitate to contact me. The office telephone contact is [phone]. This note is constructed in part using voice recognition software. While every effort has been made to ensure accuracy site damage prevention technician errors may have been included. Yours sincerely, Lilia Vegas MD Coding Level of Care Code Est Pt Level 4 (75500) Diagnoses Left testicular pain N50.812 Left varicocele I86.1 Hydrocele, right N43.3 Screening PSA (prostate specific antigen) Z12.5
== END 2024-05-06 15:32 | disposition home or self-care (01) ==
PROVIDERS: PCP Family Medicine; Visit Provider Urology
DX: N50.812 Left testicular pain (principal); I86.1 Scrotal varices; N43.3 Hydrocele, unspecified; Z12.5 Encounter for screening for malignant neoplasm of prostate; Z13.9 Encounter for screening, unspecified
CPT/HCPCS: 99214

== ENCOUNTER → 2024-05-06 14:52 | Outpatient (BNVA) | payer MEDICAID, SELFPAY | PROVIDERS: PCP Family Medicine; Visit Provider Urology | DX: N50.812 Left testicular pain (principal); I86.1 Scrotal varices; N43.3 Hydrocele, unspecified; Z12.5 Encounter for screening for malignant neoplasm of prostate | CPT/HCPCS: 81003; 99212 ==

== ENCOUNTER 2024-09-10 09:38 | Outpatient (REF) | payer MEDICAID, SELFPAY ==
--- OUTSIDE RECORDS SUMMARY | 2024-09-10 10:42 | XMS_ITS | Clinical Summary ---
Author Organization [employer] Address [address] [facility] [address] [place] [address] Care Team Providers Care Waiter/Waitress Dining Car Name Role Phone Ira Andres MD Primary Care Provider [phone] Wan Calderon PharmD Unavailable [phone] Allergies No known active allergies Medications zolpidem (Ambien) 10 MG tablet Take 10 mg by mouth if needed at bedtime for sleep. Active sertraline (Zoloft) 100 MG tablet TAKE 1/2 TABLET BY MOUTH AT 12 PM AND AT BEDTIME 04/22/19 25 Active atorvastatin (Lipitor) 40 MG tabletIndication s:Dyslipidemia Take 1 tablet (40 mg) by mouth Once per day. 30 tablet 5 07/09/19 25 Active chlorthalidone (Hygroton) 25 MG tabletIndication s:Essential hypertension TAKE 1 TABLET BY MOUTH DAILY 90 tablet 1 07/09/19 25 Active lisinopril 40 MG tabletIndication s:Essential hypertension Take 1 tablet (40 mg) by mouth Once per day. 30 tablet 11 09/05/19 25 026 Active aspirin 81 MG EC tablet Take 1 tablet (81 mg) by mouth Once per day. 90 tablet 3 09/05/19 25 Active aspirin 81 MG EC tablet Take 1 tablet by mouth at bed time. 025 Discontinued(Re order (will not trigger notification to Pharmacy)) lisinopril (Zestril) 30 MG tabletIndication s:Essential hypertension Take 1 tablet (30 mg) by mouth Once per day. 30 tablet 5 08/08/19 25 025 Discontinued(Do se adjustment) Active Problems Problem Noted Date Diagnosed Date Mass of left testicle 02/27/2023 Assessment & Plan (12/15/2023 5:19 AM EDT): - following with urologist - US in Feb 2023 showed varicocele, hydrocele, and epididymal head cyst. - Treated with antibiotic in Feb 2023 and October 2023 - Plan is to repeat US and follow up. Assessment & Plan (02/28/2023 9:00 AM EST): Mass is tender, distensible, epidymidis is not tender. Concern for torsion of testicular appendage UA is positive for small LE and small blood, will send for urine culture Needs US for immediate characterization of mass and to rule out testicular torsion-- ordered stat. Unfortunately we are not able to call and schedule ultrasounds at this time. Patient explained at walkin desk that ER would be a faster evaluation of his pain, but he declined. He continues to decline ER at this time though it could cause a delay should he need surgery. We decided together that if his pain increases overnight or he cannot sleep, then he will go to nearest ER in order to have ultrasound, otherwise we will call in the morning to schedule him for tomorrow STAT. He will not go to work tomorrow Take Tylenol or Naproxen prn Use underwear or jock strap for support, ice for pain Addendum 845am 02/28/23 I called [facility] and he is scheduled for 2pm today for his scrotal ultrasound. To the ER for positive finding of testicular torsion. For appendicial torsion, he can be managed conservatively. For testicular mass, it depends on the nature of the mass. I called and spoke to Wan and his and they will go to the hospital at 145pm today to register. Dyslipidemia 05/26/2022 Assessment & Plan (12/12/2023 1:54 PM EDT): -Lipid Profile: 12/11/23 TC 183; TG 157; HDL 41; LDL 111. -Continue Atorvastatin. Improve adherence. Reassured that it is safe for liver -Continue with lifestyle modifications. Assessment & Plan (05/26/2022 9:19 AM EST): -Lipid Profile: 06/16/21 TC 20; TG 176; HDL 53; LDL 119. -Continue Atorvastatin. Improve adherence. Reassured that it is safe for liver -Continue with lifestyle modifications. Depression 05/26/2022 Assessment & Plan (12/15/2023 5:24 AM EDT): -Patient is connected with behavioral health service and has been receiving counseling and medications from psychiatrist -Continue current medications: Sertraline and zolpidem Assessment & Plan (05/26/2022 6:52 PM EST): -Continue counseling -Continue current medications: Sertraline and zolpidem -Patient able to contract his safety today. History of substance use 05/26/2022 Tobacco use 05/26/2022 Assessment & Plan (12/12/2023 1:11 PM EDT): -Continue working on smoking cessation -Refer to [facility] for smoking cessation Assessment & Plan (05/26/2022 6:50 PM EST): -Continue working on smoking cessation -Refer to [facility] for smoking cessation Positive QuantiFERON-TB Gold test 05/26/2022 Assessment & Plan (05/26/2022 9:41 AM EST): -Pt has been followed by TB clinic. -Pt was unable to submit sputum Cx -Seen by Dr. Smallwood in TB clinic on 04/05/22. Plan is to treat with rifampin for [address] Smallwood review CT. -Will check status of note from clinic Chronic pain of both knees 05/26/2022 Assessment & Plan (12/12/2023 1:08 PM EDT): -Following with [facility] -Received steroid injection to R knee in Mar 2022 with good pain relief Assessment & Plan (05/26/2022 6:51 PM EST): -Following with [facility] -Received steroid injection to R knee in Mar 2022 with good pain relief History of latent tuberculosis 05/26/2022 Assessment & Plan (12/15/2023 5:20 AM EDT): -Pt states he received treatment about 8 years ago -Evaluated by [facility] clinic in August 2022, prescribed rifampin 600 mg dialy for 4 months Assessment & Plan (05/26/2022 6:49 PM EST): -Pt states he received treatment about 8 years ago -Currently followed by [facility] clinic -Will contact for their treatment plan Essential hypertension 05/14/2022 Assessment & Plan (12/12/2023 1:07 PM EDT): -Goal BP < 140/90 per JNC-8 and < 130/80 per ACC/AHA guideline (Treatment threshold >= 140/90 ) -Today BP is not at goal, elevated -Treatment Hx: Change lisinopril - hctz 20/12.5 to lisinopril 20 mg daily and chlorthalidone 25 mg daily in 2020 -Continue working on lifestyle modifications -Continue chlorthalidone 25 mg daily -Continue lisinopril 40 mg daily -Pt advised to check BP everyday at home, we discussed about adding another medication, but patient and his family are hesitant at this time. They will check BP at home and will reschedule [facility] appointment -Follow up in 3-4 mo, sooner if any problem arises Assessment & Plan (05/26/2022 6:52 PM EST): -Goal BP < 140/90 per JNC-8 and < 130/80 per ACC/AHA guideline (Treatment threshold >= 140/90 ) -Today BP is not at goal, elevated -Treatment Hx: Change lisinopril - hctz 20/12.5 to lisinopril 20 mg daily and chlorthalidone 25 mg daily in 2020 -Continue working on lifestyle modifications -Continue chlorthalidone 25 mg daily -Continue lisinopril 40 mg daily -Pt advised to check BP everyday at home, we discussed about adding another medication, but patient and his family are hesitant at this time. They will check BP at home and will reschedule [facility] appointment -Follow up in 3-4 mo, sooner if any problem arises History of hepatitis C 05/14/2022 Assessment & Plan (12/15/2023 5:16 AM EDT): -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 -Prior to Tx, Fibrosis score 0. No US. -Most recent lab: 01/24/22 AST 18, ALT19, Hep C VL undetectable -Achieved cure -Hep A and B immunizations completed, but recent surface antibody was non- reactive. Will consider giving a booster in the future. Assessment & Plan (05/26/2022 5:29 AM EST): -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 -Prior to Tx, Fibrosis score 0. No US. -Most recent lab: 01/24/22 AST 18, ALT19, Hep C VL undetectable -Achieved cure -Hep A and B immunizations completed Encounters Date Type Department Care Team Description 09/04/2024 9:30 AM EDT Telemedicine [facility] [address] [place] [phone] Wan Calderon PharmD Essential hypertension (Primary Dx); Tobacco use 2024 9:30 AM EDT Telemedicine [facility] [address] [place] [phone] Wan Calderon PharmD Essential hypertension (Primary Dx); Tobacco use 2024 Travel 07/29/2024 9:30 AM EDT Telemedicine [facility] [address] [place] [phone] Wan Calderon PharmD Essential hypertension (Primary Dx) 07/29/2024 Travel 07/23/2024 Telephone [facility] [address] [place] [phone] Wan Calderon PharmD Appointment Request 07/08/2024 11:00 AM EDT Telemedicine [facility] [address] [place] [phone] Wan Calderon PharmD Essential hypertension (Primary Dx); Dyslipidemia 07/08/2024 Travel 06/26/2024 Population Health Risk Score [facility] [address] [place] [address] [phone] Provider, Population Health Generic from Last 3 Months Immunizations Immunization Administration Dates Next Due Hep B, adult 12/11/2023 HepB-CpG 12/06/2022 Influenza, IIV3, injectable 02/17/2015, 1 Pneumococcal Conjugate PCV 20 12/11/2023 Pneumococcal Polysaccharide PPSV23 10/28/2016 Tdap 06/30/2015,09/13/2011,03/15/2011 Zoster, Recombinant 07/25/2022,09/08/2020 Social History Tobacco Use Types Packs/Day Years Used Date Smoking Tobacco: Every Day Cigarettes 0.5 22.4 Started: 2002 Passive Smoke Exposure: Current Smokeless Tobacco: Never Tobacco Cessation:Ready to Q uit: Not Asked; Counseling Given: Not Answered Comments:2-3 cigs a day Alcohol Use Standard Drinks/Week Comments Not Currently 0 (1 standard drink = 0.6 oz pur e alcohol) 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 I have huong moreno 11/28/[address] you li ve. Do you have problems with any of the following? None of the above 11/28/2023 Food Insecurity Answer Date Recorded Within the past 12 months, y ou worried that your food would run out before you got money to buy more: Sometimes True 2023 Within the past 12 months,th e food you bought just didn't last and you didn't have enough money to get more: Sometimes True 11/28/2023 Transportation Answer Date Recorded In the past 12 months, has l ack of transportation kept you from medical appts, meetings, work or from getting things needed for daily living? No 11/28/2023 Utilities Answer Date Recorded In the past 12 months, has t he electric, gas, oil or water company threatened to shut off services in your home? No 11/28/2023 Depression Answer Date Recorded Patient Health Questionnaire-2 Score 0 05/26/2022 Internet Access Answer Date Recorded Internet Access Q1 No 12/04/2023 Internet Access Q2 I do not want or need it 05/2023 Sex and Gender Information Value Date Recorded Sex Assigned at Male 01/31/2022 10:16 AM EDT Legal Sex Male 10:16 AM EDT Gender Identity Male 01/31/2022 10:16 AM EDT Sexual Orientation Straight 01/31/2022 10 :16 AM EDT Last Filed Vital Signs Vital Sign Reading Time Taken Comments Blood Pressure 144/100 09/04/2024 9:36 AM EDT Home Monitor (Televisit) Pulse 61 09/04/2024 9:36 AM EDT Temperature 36.3 ??C (97.3 ??F) 12/11/2023 1 :47 PM EDT Respiratory Rate 20 12/11/2023 1:47 PM EDT Oxygen Saturation 99% 12/11/2023 1:4 7 PM EDT Inhaled Oxygen Concentration - - Weight 86 kg (189 lb 9.6 oz) 12/11/2023 1:47 PM EDT Height 175.3 cm (5' 9 ) 12/11/2023 1:47 PM EDT Body Mass Index 28 12/11/2023 1:47 PM EDT Plan of Treatment Upcoming Encounters Date Type Department Care Team (Late st Contact Info) Description 10/02/2024 9:30 AM EDT Telemedicine [facility] [address] [place] [phone] Wan Calderon, PharmD [address] [place] [address] Health Maintenance Due Date Last Done Comments CT Colonography 1965 Colonoscopy 1965 Colorectal Cancer Screening 1965 FIT DNA/Cologuard 1965 FIT 1965 FOBT 1965 Sigmoidoscopy 1965 Disability Screening 1965 Alcohol/Substance Use Screening 1977 Depression Screening 05/26/2023 05/26/2022, 05/26/19 23 COVID-19 Vaccine ( season) 2023 06/04/2020, 05/14/2020 Hepatitis B Vaccines (3 of 3 - 19+ 3-dose series) 02/05/2024 12/11/2023, 12/06/2022 SDOH Screening 11/27/2024 11/28/2023 Influenza Vaccine (Season Ended) 2024 02/17/2015, 01/11/2011 Diabetes: Hemoglobin A1C 12/10/2024 024, 05/26/2022, 11/02/2021, Additional history exists Tobacco Screening 12/10/2024 12/11/2023 DTaP/Tdap/Td Vaccines (4 - Td or Tdap) 06/29/2025 06/30/2015, 09/13/2011, 03/15/2011 Lipid Panel 12/10/2028 12/11/2023, 05/05, 06/16/2021 RSV Patients and Patients Aged 60 years or older (1 - 1-dose 75+ series) 2040 HIV Screening Completed 06/16/2021, 09/16/2020 Zoster Vaccines Completed 07/25/2022, 09/08/2020 Pneumococcal Vaccine: 50+ Years Completed 12/11/2023, 10/28/2016 HIB Vaccines Aged Out No longer eligi ble based on patient's age to complete this topic HPV Vaccines Aged Out No longer eligi ble based on patient's age to complete this topic Hepatitis A Vaccines Discontinued IPV Vaccines Aged Out No longer eligi ble based on patient's age to complete this topic Meningococcal B Vaccine Aged Out No l onger eligible based on patient's age to complete this topic Meningococcal Vaccine Aged Out No mitch jefferson eligible based on patient's age to complete this topic RSV under 20 months Aged Out No longe r eligible based on patient's age to complete this topic Rotavirus Vaccines Aged Out No longer eligible based on patient's age to complete this topic Goals Goal Patient Goal Type Associated Problems Recent Progress Patient-Stated? Author Blood Pressure < 140/90 Blood Pressure 144/100(2024 9:36 AM EDT) No Wan Calderon, Aftab Quit using tobacco (cigarettes, smokeless, etc) Tobacco Use No change( 023 2:20 PM EST) No Wan Calderon, Aftab Procedures Procedure Name Priority Date/Time Associated Diagnosis Comments HEMOGLOBIN A1C Routine 12/11/2023 3:06 PM EDT Screening for diabetes mellitus LIPID PANEL WITH REFLEX TO DIRECT LDL Routine 12/11/2023 3:06 PM EDT Dyslipidemia HIV 1/2 ANTIGEN/ANTIBODY, FOURTH GENERATION W/RFL Routine 06/16/2021 10:40 AM EDT from Last 3 Months or Most Recently Relevant to Health Maintenance Results * (ABNORMAL) Lipid Panel with Reflex to Direct LDL (12/11/2023 3:06 PM EDT) Triglycerides 157(H) <150 mg/dL [facility] Comment:Desirable Triglyceri de: less than 150 mg/dLBorderline High Triglyceride 150-199 mg/dLHigh Triglyceride: 200-499 mg/dLVery High Triglyceride: greater than or equal to 5OO mg/dL Cholesterol 183 <200 mg/dL [facility] Comment:Desirable Cholestero l: less than 200 mg/dLBorderline High Cholesterol: 200-239 mg/dLHigh Cholesterol: greater than 239 mg/dL LDL Cholesterol Calculated 111(H) <100 mg/dL [facility] Comment:Desirable LDL: less than 100 mg/dLNear Optimal/Above Optimal LDL: 110- 129 mg/dLBorderline High LDL: 130-159 mg/dLHigh LDL: 160-189 mg/dLVery High LDL: greater than or equal to 190 mg/dL HDL Cholesterol 41 >40 mg/dL [facility] Comment:Desirable HDL: great er than 40 mg/dL Note: This HDL assay may give artificially low results in patients with liver disease. Blood 12/11/2023 3:06 PM EDT 12/11/2023 4:28 PM EDT us Ira Andres MD LAB BLOOD ORDERABLES Final Resul t [facility] [address] [place] [phone] [phone] * Hemoglobin A1c (12/11/2023 3:06 PM EDT) Hemoglobin A1c 5.7 <6.0 % [facility] Comment:Hemoglobin A1C Refer ence Range Adults: 4.8 - 6.0 % Non diabetic: < 6.0 % Goal: < 7.0 %Additional Action Suggested: > 8.0 %Note: Hemoglobin A1c results are invalid for patients with abnormal amounts of HbF. Blood transfusions may impact the HbA1c concentration in the patient sample. Estimated Average Glucose 117 mg/dL [facility] Comment:eAG = Estimated ave rage glucose which is %A1C expressed asaverage glucose, using the formula of the [id number] Glucose study (ADAG), Diabetes Care, Vol.31,#8,2007 Blood Venous blood specimen / Unknown 12/11/2023 3:06 PM EDT 12/11/2023 4:28 PM EDT Ira Andres MD LAB BLOOD ORDERABLES Final Resul t [facility] [address] [place] [phone] * HIV 1/2 ANTIGEN/ANTIBODY,FOURTH GENERATION W/RFL (06/16/2021 10:40 AM EDT) [facility] HIV-1/2 ANTIGEN AND ANTIBODIES, 4TH GENERATION W/ REFLEX NON-REACT [facility] NON-REACT [facility] Comment: HIV-1 antigen and HIV-1/HIV-2 antibodies were not detected. There is no laboratory evidence of HIV infection. ?? PLEASE NOTE: This information has been disclosed to you from records whose confidentiality may be protected by state law. ??If your state requires such protection, then the state law prohibits you from making any further disclosure of the information without the specific written consent of the person to whom it pertains, or as otherwise permitted by law. A general authorization for the release of medical or other information is NOT sufficient for this purpose. ? For additional information please refer to http://education.[employer]/faq/MTX066 (This link is being provided for informational/ educational purposes only.) ? The performance of this assay has not been clinically validated in patients less than 2 years old. ?? 06/16/2021 10:4 0 AM EDT Ira Andres MD LAB BLOOD ORDERABLES Final Resul t [facility] [address] from Last 3 Months or Most Recently Relevant to Health Maintenance Insurance Care Teams Waiter/Waitress Dining Car Relationship Specialty Start Date End Date Ira Andres MD [address] [place] [address] PCP - General Family Medicine 06/16/21 Wan Calderon, PharmD [address] [place], [place] Pharmacist Internal Medicine 03/08/22
[2024-09-10 11:26] LABS: Alanine Aminotransferase 25 U/L (0-40); Albumin Level 4.5 g/dL (3.5-5.0); Alkaline Phosphatase 63 U/L (39-117); Anion Gap 11 (12-20); Aspartate Amino Transferase 27 U/L (5-37); Bilirubin Direct 0.2 mg/dL (0.0-0.5); Bilirubin Total 0.8 mg/dL (0.0-1.0); Blood Urea Nitrogen 17 mg/dL (9-16); Calcium 9.3 mg/dL (8.4-10.2); Carbon Dioxide 30 mmol/L (22-29); Chloride 105 mmol/L (96-108); Cholesterol 186 mg/dL (<200); Estimated Glomerular Filt Rate > 60; Glucose Random 93 mg/dL (60-115); HDL Cholesterol 46 mg/dL (>40); LDL Cholesterol Calculated 123 mg/dL (<100); Potassium 4.3 mmol/L (3.3-5.1); Sodium 142 mmol/L (135-145); Total Protein 7.1 g/dL (6.5-8.0); Triglycerides 86 mg/dL (<150)
== END 2024-09-10 09:39 | disposition home or self-care (01) ==
LOC: HO.LAB 09:38
PROVIDERS: PCP Family Medicine; Visit Provider Family Medicine
DX: E78.5 Hyperlipidemia, unspecified (principal); I10 Essential (primary) hypertension
CPT/HCPCS: 36415; 80048; 80061; 80076

== ENCOUNTER 2024-12-20 09:27 | Outpatient (REF) | payer MEDICAID, SELFPAY ==
--- OUTSIDE RECORDS SUMMARY | 2024-12-17 10:45 | XMS_ITS | Encounter Summary ---
Author Organization [employer] Address [address] [facility] [address] [place] [address] Care Team Providers Care Taper/Finisher Name Role Phone Ira Andres MD Primary Care Provider [phone] Wan Calderon PharmD Unavailable [phone] Reason for Referral * Consultation (Routine) - Closed Specialty Diagnoses / Procedures Referred By Raheel watson Referred To Contact Gastroenterology Diagnoses Colon cancer screening Ira Andres MD [address] [place] [address] Phone: tel: fax: [facility] Gastroenterology [address] [place], [place] Phone: tel: fax: Referral ID Status Reason Start Date Expiration Date V isits Requested Visits Authorized [id number] Closed Specialty Services Required 12/17/2024 12/17/2025 6 6 * Imaging (Routine) - Authorized Specialty Diagnoses / Procedures Referred By Contgissel t Referred To Contact Cardiology Diagnoses Leg swelling Pain in both lower extremities Procedures Vascular US lower extremity arterial duplex bilateral with RERE Ira Anrdes MD [address] [place] [address] Phone: tel: fax: [facility] Referral ID Status Reason Start Date Expiration Date Visits Requested Visits Authorized [id number] Authorized Perform Procedure 12/17/2024 12/17/2025 1 1 * Imaging (Routine) - Authorized Specialty Diagnoses / Procedures Referred By Raheel t Referred To Contact Cardiology Diagnoses Leg swelling Pain in both lower extremities Procedures Vascular US lower extremity venous insufficiency bilateral Ira Andres MD [address] [place] [address] Phone: tel: fax: [facility] Referral ID Status Reason Start Date Expiration Date Visits Requested Visits Authorized [id number] Authorized Perform Procedure 12/17/2024 12/17/2025 1 1 Encounter Details Date Type Department Care Team (Late st Contact Info) Description 12/17/2024 10:45 AM EDT Office Visit [facility] [address] [place] [address] Ira Andres MD [address], [place] [phone] Routine general medical examination at a health care facility (Primary Dx); Essential hypertension; Dyslipidemia; Mass of left testicle; Major depressive disorder, remission status unspecified, unspecified whether recurrent; Tobacco use; History of hepatitis C; Dietary counseling; Exercise counseling; Overweight; Leg swelling; Pain in both lower extremities; Colon cancer screening; Screening for diabetes mellitus Social History Tobacco Use Types Packs/Day Years Used Date Smoking Tobacco: Every Day Cigarettes 0.5 22.7 Started: 2002 Passive Smoke Exposure: Current Smokeless Tobacco: Never Comments:2-3 cigs a day Alcohol Use Standard Drinks/Week Comments Not Currently 0 (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 I have huong moreno 12/17/[address] you li ve. Do you have problems with any of the following? None of the above 12/17/2024 Food Insecurity Answer Date Recorded Within the past 12 months, y ou worried that your food would run out before you got money to buy more: Never True 12/17/2024 Within the past 12 months,th e food you bought just didn't last and you didn't have enough money to get more: Never True Transportation Answer Date Recorded In the past 12 months, has l ack of transportation kept you from medical appts, meetings, work or from getting things needed for daily living? No 12/17/2024 Utilities Answer Date Recorded In the past 12 months, has t he electric, gas, oil or water company threatened to shut off services in your home? No 12/17/2024 Depression Answer Date Recorded Patient Health Questionnaire-2 Score 4 12/17/2024 Internet Access Answer Date Recorded Internet Access Q1 Yes 12/17/2024 Internet Access Q2 Not on file 12/17/2024 Sex and Gender Information Value Date Recorded Sex Assigned at Male 01/31/2022 10:16 AM EDT Legal Sex Male 10:16 AM EDT Gender Identity Male 01/31/2022 10:16 AM EDT Sexual Orientation Straight 01/31/2022 10 :16 AM EDT documented as of this encounter Last Filed Vital Signs Vital Sign Reading Time Taken Comments Blood Pressure 140/106 12/17/2024 11:04 AM EDT Pulse 62 12/17/2024 10:41 AM EDT Temperature 36.9 C (98.4 F) 12/17/2024 10:41 AM EDT Respiratory Rate 19 12/17/2024 10:41 AM EDT Oxygen Saturation - - Inhaled Oxygen Concentration - - Weight 86.2 kg (190 lb 2 oz) 12/17/2024 10:41 AM EDT Height 180.3 cm (5' 11 ) 12/17/2024 10:41 AM EDT Body Mass Index 26.52 12/17/2024 10:41 AM EDT documented in this encounter Functional Status * Over the past 2 weeks, how often have you been bothered by any of the following problems? Question Answer Date of Assessment Author Patient Health Questionnaire-2 Score 4 12/02 10:45 AM EDT Sheba Leahy MA * Little interest or pleasure in doing things Answer Date of Assessment Author Several days 12/17/2024 10:45 AM EDT Alexandra Leahy MA * Feeling down, depressed, or hopeless Answer Date of Assessment Author Nearly every day 12/17/2024 10:45 AM EDT Jarvis Leahy MA * Trouble falling or staying asleep, or sleeping too much Answer Date of Assessment Author Several days 12/17/2024 10:45 AM EDT Alexandra Leahy MA * Feeling tired or having little energy Answer Date of Assessment Author Several days 12/17/2024 10:45 AM EDT Alexandra Leahy MA * Poor appetite or overeating Answer Date of Assessment Author Nearly every day 12/17/2024 10:45 AM EDT Jarvis Leahy MA * Feeling bad about yourself - or that you are a failure or have let yourself or your family down Answer Date of Assessment Author Not at all 12/17/2024 10:45 AM EDT Alexandra Leahy MA * Trouble concentrating on things, such as reading the newspaper or watching television Answer Date of Assessment Author Several days 12/17/2024 10:45 AM EDT Alexandra Leahy MA * Moving or speaking so slowly that other people could have noticed? Or the opposite - being so fidgety or restless that you have been moving around a lot more than usual. Answer Date of Assessment Author Nearly every day 12/17/2024 10:45 AM EDT Jarvis Leahy MA * Thoughts that you would be better off or hurting yourself in some way Answer Date of Assessment Author Not at all 12/17/2024 10:45 AM EDT Alexandra Leahy MA * Patient Health Questionnaire-9 Score Answer Date of Assessment Author 13 12/17/2024 10:45 AM EDT Alexandra Leahy MA * How difficult have these problems made it for you to do your work, take care of things at home, or get along with other people? Answer Date of Assessment Author Very difficult 12/17/2024 10:45 AM EDT Alexandra Leahy MA * Over the last 2 weeks, how often have you been bothered by any of the following problems? Question Answer Date of Assessment Author Feeling nervous, anxious, or on edge 3 12/02 10:44 AM EDT Sheba Leahy MA Not being able to stop or co ntrol worrying 1 12/17/2024 10:44 AM EDT Sheba Leahy M A Worrying too much about diff erent things 2 12/17/2024 10:44 AM EDT Sheba Leahy M A Trouble relaxing 3 12/17/2024 10:44 AM EDT Sheba Leahy MA Being so restless that it is hard to sit still 3 12/17/2024 10:44 AM EDT Sheba Leahy M A Becoming easily annoyed or irritable 2 12/02 10:44 AM EDT Sheba Leahy MA Feeling afraid as if somethi ng awful might happen 3 12/17/2024 10:44 AM EDT Sheba Leahy M A CHILANGO-7 Total Score 17 12/17/2024 10:44 AM EDT Sheba Leahy MA documented as of this encounter Miscellaneous Notes * Assessment & Plan Note - Juli Martins MA - 12/17/2024 10:33 AM EDT Associated Problem(s): Tobacco use -Continue working on smoking cessation -Refer to [facility] for smoking cessation * Assessment & Plan Note - Juli Martins MA - 12/17/2024 10:33 AM EDT Associated Problem(s): Depression -Patient is connected with behavioral health service and has been receiving counseling and medications from psychiatrist -Continue current medications: Sertraline and zolpidem * Assessment & Plan Note - Juli Martins MA - 12/17/2024 10:32 AM EDT Associated Problem(s): Mass of left testicle - following with urologist - US in Feb 2023 showed varicocele, hydrocele, and epididymal head cyst. - Treated with antibiotic in Feb 2023 and October 2023 - Plan is to repeat US and follow up. * Assessment & Plan Note - Juli Martins MA - 12/17/2024 10:32 AM EDT Associated Problem(s): History of hepatitis C -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 -Prior to Tx, Fibrosis score 0. No US. -Most recent lab: 01/24/22 AST 18, ALT19, Hep C VL undetectable -Achieved cure -Hep A and B immunizations completed, but recent surface antibody was non- reactive. Will consider giving a booster in the future. * Assessment & Plan Note - Juli Martins MA - 12/17/2024 10:32 AM EDT Associated Problem(s): Essential hypertension -Goal BP < 140/90 per JNC-8 and [...] we discussed about adding another medication, but patientand his family are hesitant at this time. They will check BP at home and will reschedule [facility] appointment -Follow up in 3-4 mo, sooner if any problem arises * Assessment & Plan Note - Juli Martins MA - 12/17/2024 10:32 AM EDT Associated Problem(s): Dyslipidemia -Lipid Profile: 09/10/24 TC 186; TG 86; HDL 46; LDL 123. -Continue Atorvastatin. Improve adherence. Reassured that it is safe for liver -Continue with lifestyle modifications. documented in this encounter Plan of Treatment Upcoming Encounters Date Type Department Care Team (Late st Contact Info) Description 01/30/2025 9:00 AM EDT Medication Management [facility] [address] [place] [address] Wan Calderon, FlavioD [address] [place] [address] Scheduled Orders Name Type Priority Associated Diagnoses Orde r Schedule Hemoglobin A1c Lab Routine Screening for diabetes mellitus Expected: 12/17/2024 (Approximate), Expires: 12/17/2025 Comprehensive Metabolic Panel Lab Routine Essential hypertension Dyslipidemia Expected: 12/17/2024 (Approximate), Expires: 12/17/2025 Lipid Panel with Reflex to Direct LDL Lab Routine Essential hypertension Dyslipidemia Expected: 12/17/2024 (Approximate), Expires: 12/17/2025 Albumin, Random Urine W/Creatinine Lab Routine Essential hypertension Expected: 12/17/2024 (Approximate), Expires: 12/17/2025 Scheduled Referrals Name Type Priority Associated Diagnoses Order Schedule Referral to Gastroenterology Outpatient Referral Routine Colon cancer screening Expected: 12/17/2024 (Approximate), Expires: 12/17/2025 documented as of this encounter Goals Goal Patient Goal Type Associated Problems Recent Progress Patient-Stated? Author Blood Pressure < 140/90 Blood Pressure 140/106(2024 11:04 AM EDT) No Wan Calderon, PharmD Quit using tobacco (cigarettes, smokeless, etc) Tobacco Use No change( 023 2:20 PM EST) No Wan Calderon PharmD documented as of this encounter Visit Diagnoses Diagnosis Routine general medical examination at a health care facility- Primary Essential hypertension Unspecified essential hypertension Dyslipidemia Other and unspecified hyperlipidemia Mass of left testicle Major depressive disorder, remission status unspecified, unspecified whether recurrent Tobacco use History of hepatitis C Personal history of other infectious and parasitic disease Dietary counseling Dietary surveillance and counseling Exercise counseling Overweight Leg swelling Swelling of limb Pain in both lower extremities Colon cancer screening Special screening for malignant neoplasms, colon Screening for diabetes mellitus documented in this encounter Additional Health Concerns Assessment Noted Time PHQ-9 Depression Total Score: 13 025 10:45 AM EDT documented as of this encounter Care Teams Taper/Finisher Relationship Specialty Start Date End Date Ira Andres MD [address] [place] [address] PCP - General Family Medicine 06/16/21 Wan Calderon, FlavioD [address] [place] [address] Pharmacist Internal Medicine 03/08/22 documented as of this encounter
--- OUTSIDE RECORDS SUMMARY | 2024-12-20 09:59 | XMS_ITS | Encounter Summary ---
Author Organization [employer] Address [address] [facility] [address] [place] [address] Care Team Providers Care Bakeshop Cleaner Name Role Phone Ira Andres MD Primary Care Provider [phone] Wan Calderon PharmD Unavailable [phone] Reason for Referral * Consultation (Routine) - Authorized Specialty Diagnoses / Procedures Referred By Contac t Referred To Contact Pharmacy Diagnoses Essential hypertension Tobacco use Ira Andres MD [address] [place] [address] Phone: tel: fax: Referral ID Status Reason Start Date Expiration Date Visits Requested Visits Authorized [id number] Authorized Consult and Treat 02/13/2024 02/12/2025 6 6 Encounter Details Date Type Department Care Team (Late st Contact Info) Description 02/13/2024 Orders Only [facility] [address] [place], [place] [phone] Ira Andres MD [address], [place] [phone] Essential hypertension (Primary Dx); Tobacco use Social History Tobacco Use Types Packs/Day Years [...] AM EDT documented as of this encounter Plan of Treatment Upcoming Encounters Date Type Department Care Team (Late st Contact Info) Description 01/30/2025 9:00 AM EDT Medication Management [facility] [address] [place] [address] Wan Calderon, PharmD [address] [place] [address] Scheduled Referrals Name Type Priority Associated Diagnoses Orde r Schedule Referral to Pharmacy [facility] Outpatient Referral Routine Essential hypertension Tobacco use Ordered: 02/13/2024 documented as of this encounter Goals Goal Patient Goal Type Associated Problems Recent Progress Patient-Stated? Author Blood Pressure < 140/90 Blood Pressure 140/106(2024 11:04 AM EDT) No Wan Calderon Aftab Quit using tobacco (cigarettes, smokeless, etc) Tobacco Use No change( 023 2:20 PM EST) No Wan Calderon PharmD documented as of this encounter Visit Diagnoses Diagnosis Essential hypertension- Primary Unspecified essential hypertension Tobacco use documented in this encounter Additional Health Concerns Assessment Noted Time PHQ-9 Depression Total Score: 0 05/26/19 23 9:25 AM EST documented as of this encounter Care Teams Bakeshop Cleaner Relationship Specialty Start Date End Date Ira Andres MD [address] [place] [id number] PCP - General Family Medicine 06/16/21 Wan Calderon, FlavioD [address] [place] [phone] Pharmacist Internal Medicine 03/08/22 documented as of this encounter
--- OUTSIDE RECORDS SUMMARY | 2024-12-20 09:59 | XMS_ITS | Encounter Summary ---
Author Organization [employer] Address [address] [facility] [address] [place] [address] Care Team Providers Care Gas Brazer Name Role Phone Ira Andres MD Primary Care Provider Wan Calderon PharmD Unavailable [phone] Reason for Visit * Reason Comments Med Refill Encounter Details Date Type Department Care Team ([facility] st Contact Info) Description 09/12/2022 Refill [facility] [address] [place], [place] [phone] Wan Calderon, PharmD [address] [place] [address] Essential hypertension Social History Tobacco Use Types Packs/Day Years Used Date Smoking Tobacco: Every Day Cigarettes 0.5 22.7 Started: 2002 Passive Smoke Exposure: Never Smokeless Tobacco: Never Alcohol Use Standard Drinks/Week Comments Not Currently 0 (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 No / Unsure 08/22/2022 3:03 PM EDT documented as of this encounter Plan of Treatment Upcoming Encounters Date Type Department Care Team (Late st Contact Info) Description 01/30/2025 9:00 AM EDT Medication Management [facility] [address] [place] [address] Wan Calderon, Aftab [address] [place] [address] documented as of this encounter Goals Goal Patient Goal Type Associated Problems Recent Progress Patient-Stated? Author Blood Pressure < 140/90 Blood Pressure 140/106(2024 11:04 AM EDT) No Wan Calderon PharmD Quit using tobacco (cigarettes, smokeless, etc) Tobacco Use No change( 023 2:20 PM EST) No Wan Calderon PharmD documented as of this encounter Visit Diagnoses Diagnosis Essential hypertension Unspecified essential hypertension documented in this encounter Additional Health Concerns Assessment Noted Time PHQ-9 Depression Total Score: 0 05/26/19 23 9:25 AM EST documented as of this encounter Care Teams Gas Brazer Relationship Specialty Start Date End Date Ira Andrse MD [address] [place] [address] PCP - General Family Medicine 06/16/21 Wan Calderon, Aftab [address] [place] [phone] Pharmacist Internal Medicine 03/08/22 documented as of this encounter
--- OUTSIDE RECORDS SUMMARY | 2024-12-20 09:59 | XMS_ITS | Clinical Summary ---
Author Organization [facility] Address [address] [place] [address] Care Team Providers Care Cotton Buyer Name Role Phone Mike Juarez Primary Care Provider [phone] Source Comments PLEASE NOTE, if this patient is a minor, it may be UNLAWFUL to discuss sensitive information that is contained in these records (such as FAMILY PLANNING, MENTAL HEALTH or SUBSTANCE ABUSE) with the minor patient's parent or other person without the patient's specific authorization.[facility] Allergies No known active allergies Medications aspirin [address] tabletIndications:E ssential hypertension Take 1 Tab by mouth once daily 90 Tab 1 9 Active acetaminophen (TYLENOL) 500 mg tabletIndications:P ain of left lower extremity TAKE 1 TABLET BY MOUTH EVERY 6 HOURS NEEDED FOR PAIN 60 Tab 2 0 Active naproxen (NAPROSYN) 250 mg tabletIndications:B joe cyst, left Take 1 Tablet by mouth 2 (two) times daily with a meal 30 Tablet 1 1 Active atorvastatin (LIPITOR) 40 mg tabletIndications:M ixed hyperlipidemia TAKE 1 TABLET BY MOUTH EVERY DAY 90 Tablet 1 2 Active lisinopriL-hydrochl orothiazide 20-12.5 mg per tabletIndications:E ssential hypertension TAKE 1 TABLET BY MOUTH EVERY DAY 90 Tablet 1 2 Active Active Problems Problem Noted Date Diagnosed Date Chronic hepatitis C without hepatic coma ([facility]) 09/18/2020 Overview (09/18/2020): September 2020- referred to [facility] 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) 6 Overview (09/28/2018): Colonoscopy: 2018: had polyp: non cancerous, repeat every 5 yrs. Done at [facility]. Colonoscopy done 01/22/2016 at [facility]: polyp in ascending colon, polyp in sigmoid colon. Internal and external hemorrhoids. Pathology shows tubular adenoma for both polyps. Prediabetes 03/17/2014 Hyperlipemia 03/17/2014 Chest pain 03/03/2014 Bilateral knee pain Overview (05/02/2016): [facility]-03/29/16- PT recommended 2 xwk for 6 wks HI (headache) HTN (hypertension) Immunizations Immunization Administration Dates Next Due INFLUENZA, SEASONAL, INJECTABLE 02/17/2015 PFIZER COVID VACCINE, PURPLE CAP, 12+ 06/04/2020 ,05/14/2020 PNEUMOCOCCAL POLYSACCHARIDE PPV23 (Pneumovax 23) 10/28/2016 TDAP 06/30/2015 ZOSTER VACCINE, RECOMBINANT (SHINGRIX) 1 Family History Medical History Relation Name Comments Heart failure Father Relation Name Status Comments Father Alive Social History Tobacco Use Types Packs/Day Years Used Date Smoking Tobacco: Some Days Cigarettes Smokeless Tobacco: Never Tobacco Cessation:Ready to Q uit: Yes Alcohol Use Standard Drinks/Week Comments No 0 (1 standard drink = 0.6 oz pur e alcohol) Social Connections Answer Date Recorded Connectedness 0 01/01/2024 Financial Resource Strain Answer Date R ecorded Financial Resource Strain 0 2018 Stress Answer Date Recorded Stress 0 11/25/2018 Physical Activity Answer Date Recorded Physical Activity 0 11/25/2018 Food Insecurity Answer Date Recorded Food 0 12/28/2023 Transportation Needs Answer Date Record ed Transportation 0 11/25/2018 Housing Stability Answer Date Recorded Housing 0 11/25/2018 Safety and Environment Answer Date Charlie rded Safety 0 11/25/2018 Utilities Answer Date Recorded Utilities 0 11/25/2018 Employment Answer Date Recorded Stress 0 01/01/2024 Sex and Gender Information Value Date Recorded Sex Assigned at Male 10/28/2016 12:41 PM PDT Legal Sex Male 9:18 AM PDT Gender Identity Male 10/28/2016 12:41 PM PDT Sexual Orientation Straight 10/28/2016 12 :41 PM PDT Last Filed Vital Signs Vital Sign Reading Time Taken Comments Blood Pressure 131/78 09/08/2020 2:28 PM EDT Pulse 63 09/08/2020 2:28 PM EDT Temperature 36.8 C (98.2 F) 09/08/2020 2:28 PM EDT Respiratory Rate 16 09/08/2020 2:28 PM EDT Oxygen Saturation 97% 09/08/2020 2:28 PM EDT Inhaled Oxygen Concentration - - Weight 81.1 kg (178 lb 14.4 oz) 09/08/2020 2:28 PM EDT Height 175.3 cm (5' 9 ) 09/08/2020 2:2 8 PM EDT Body Mass Index 26.42 09/08/2020 2:28 PM EDT Plan of Treatment Health Maintenance Due Date Last Done Comments Anxiety Screening 1965 Imm-Hepatitis A (1 of 2 - Ri sk 2-dose series) 1984 Imm-Hepatitis B (1 of 3 - 19 + 3-dose series) 1984 CT Colonography 2010 FIT/gFOBT 2010 Fecal DNA 2010 Flexible Sigmoidoscopy 2010 Imm-Pneumococcal 50+ (2 of 2 - PCV) 10/28/2017 10/28/2016 Tobacco Cessation Counseling (#1) 10/28/2017 017 Tobacco Screening 10/28/2017 10/28/2016 Colonoscopy 01/21/2019 01/22/2016, 01/22/2016 Colorectal Cancer Screening 01/21/2019 Imm-Zoster, Recombinant (2 of 2) 11/03/2020 09/09/19 Annual Wellness (Adult): Ind icated (All Coverage) 07/02/2021 07/02/2020, 10/28/2016 Diabetes Screening 09/16/2021 09/16/2020, 0 07/05/2018, 07/05/2018, Additional history exists Lipid Screening 09/16/2021 09/16/2020, 04/0 07/2018, 11/04/2016, Additional history exists Alcohol and Drug Screen 04/03/2024 07/03/19 21, 11/30/2017, 10/28/2016, Additional history exists Depression Annual Screen 04/03/2024 021, 11/30/2017, 10/28/2016, Additional history exists [id number] ( season) 2024 021, 05/14/2020 Imm-Influenza (#1) 2024 02/17/2015 Imm-DTaP/Tdap/Td (2 - Td or Tdap) 06/29/2025 016 HIV Screening Completed 09/16/2020 Procedures Procedure Name Priority Date/Time Associated Diagnosis Comments HIV 1/2 AG & AB W/RFLX (4TH GEN) Routine 09/16/2020 8:23 AM EDT Routine adult health maintenance HGBA1C W/MPG Routine 09/16/2020 8:23 AM EDT Routine adult health maintenance LIPID PANEL Routine 09/16/2020 8:23 AM EDT Routine adult health maintenance COLONOSCOPY Routine 01/22/2016 from Last 3 Months or Most Recently Relevant to Health Maintenance Results * HIV 1/2 AG & AB W/RFLX (4TH GEN) (09/16/2020 8:23 AM EDT) HIV AG/AB, 4TH GEN NON-REAC TIVE NON-REAC TIVE [employer] [facility] Comment: HIV-1 antigen and HIV-1/HIV-2 antibodies were not detected. There is no laboratory evidence of HIV infection. PLEASE NOTE: This information has been disclosed to you from records whose confidentiality may be protected by state law. If your state requires such protection, then the state law prohibits you from making any further disclosure of the information without the specific written consent of the person to whom it pertains, or as otherwise permitted by law. A general authorization for the release of medical or other information is NOT sufficient for this purpose. For additional information please refer to http://education.[employer]/faq/HXZ951 (This link is being provided for informational/ educational purposes only.) The performance of this assay has not been clinically validated in patients less than 2 years old. Blood Blood / Unknown 09/16/2020 8 :23 AM EDT 09/16/2020 8:25 AM EDT Narrative [employer] - 09/17/2020 11:04 PM EDT FASTING:YES us Mike [facility] - BLOOD DRAW Edited Result - Final Performing Organization Address [facility]/ZIP Co de Phone Number [employer] [address] [address], [employer] [address] [address] * HGBA1C W/MPG (09/16/2020 8:23 AM EDT) HEMOGLOBIN A1C 5.4 <5.7 % of total Hgb [facility] Comment: For the purpose of screening for the presence of diabetes: <5.7% Consistent with the absence of diabetes 5.7-6.4% Consistent with increased risk for diabetes (prediabetes) > or =6.5% Consistent with diabetes This assay result is consistent with a decreased risk of diabetes. Currently, no consensus exists regarding use of hemoglobin A1c for diagnosis of diabetes in children. According to [place] Diabetes Association (ADA) guidelines, hemoglobin A1c <7.0% represents optimal control in non- diabetic patients. Different metrics may apply to specific patient populations. Standards of Medical Care in Diabetes(ADA). MEAN PLASMA GLUCOSE 115 mg/dL (calc) [facility] Blood Blood / Unknown 09/16/2020 8 :23 AM EDT 09/16/2020 8:25 AM EDT Narrative [employer] - 09/17/2020 11:04 PM EDT FASTING:YES us Mike [facility] - BLOOD DRAW Edited Result - Final Performing Organization Address City/[facility]/ZIP Co de Phone Number [facility] [address] [address], [employer] [facility] [address],[facility] [place] [address] * (ABNORMAL) LIPID PANEL (09/16/2020 8:23 AM EDT) CHOLESTEROL, TOTAL 175 <200 mg/dL [employer] [facility] HDL CHOLESTEROL 53 > OR = 40 mg/dL [employer] [facility] TRIGLYCERIDES 104 <150 mg/dL [employer] [facility] LDL-CHOLESTEROL 102(H) 99 mg/dL (calc) [employer] [facility] Comment: Reference range: <100 Desirable range <100 mg/dL for primary prevention; <70 mg/dL for patients with CHD or diabetic patients with > or = 2 CHD risk factors. LDL-C is now calculated using the Cristo calculation, which is a validated novel method providing better accuracy than the Friedewald equation in the estimation of LDL-C. Deniz SS et al. PATSY. 2013;310(19): 7892-4202 (http://education.[employer]ic[employer]/faq/DGL520) CHOL/HDLC RATIO 3.3 <5.0 (calc) [employer] [facility] NON-HDL CHOLESTEROL 122 <130 mg/dL (calc) [employer] [facility] Comment: For patients with diabetes plus 1 major ASCVD risk factor, treating to a non-HDL-C goal of <100 mg/dL (LDL-C of <70 mg/dL) is considered a therapeutic option. Blood Blood / Unknown 09/16/2020 8 :23 AM EDT 09/16/2020 8:25 AM EDT Narrative [facility] - 09/17/2020 11:04 PM EDT FASTING:YES Mike [facility] - BLOOD DRAW Edited Result - Final [employer] [facility] [address] [facility] [address] [place] [address], [employer] [facility] [address] [address] * (ABNORMAL) COLONOSCOPY (01/22/2016) us Provider [facility] PROCEDURES Final Result from Last 3 Months or Most Recently Relevant to Health Maintenance Insurance C3 [facility] [employer] Member Subscriber Plan / Payer (Ef fective 2023-Present) Name:Wan Nino Relation to Subscriber:Self Name:Wan Nino Payer ID:[id number] Group ID:Not on file Type:Managed Medicaid Address: [place] [id number] Care Teams Cotton Buyer Relationship Specialty Start Date End Date Mike Juarez PA [address] [place] [address] PCP - General Internal Medicine 10/20/16
--- OUTSIDE RECORDS SUMMARY | 2024-12-20 09:59 | XMS_ITS | Clinical Summary ---
Author Organization [facility] Address [address] [place] [address] Care Team Providers Care Water Pump Assembler Name Role Phone Ira Andres MD Primary Care Provider Wan Calderon PharmD Unavailable [phone] Allergies No known active allergies Medications zolpidem (Ambien) 10 MG tablet Take 10 mg by mouth if needed at bedtime for sleep. Active sertraline (Zoloft) 100 MG tablet TAKE 1/2 TABLET BY MOUTH AT 12 PM AND AT BEDTIME 5 Active atorvastatin (Lipitor) 40 MG tabletIndications :Dyslipidemia Take 1 tablet (40 mg) by mouth Once per day. 30 tablet 5 5 Active chlorthalidone (Hygroton) 25 MG tabletIndications :Essential hypertension TAKE 1 TABLET BY MOUTH DAILY 90 tablet 1 5 Active lisinopril 40 MG tabletIndications :Essential hypertension Take 1 tablet (40 mg) by mouth Once per day. 30 tablet 11 5 09/05/19 26 Active aspirin 81 MG EC tablet Take 1 tablet (81 mg) by mouth Once per day. 90 tablet 3 5 Active Active Problems Problem Noted Date Diagnosed Date Mass of left testicle 02/27/2023 Assessment & Plan (12/17/2024 10:32 AM EDT): - following with urologist - US in Feb 2023 showed varicocele, hydrocele, and epididymal head cyst. - Treated with antibiotic in Feb 2023 and October 2023 - Plan is to repeat US and follow up. Assessment & Plan (12/15/2023 5:19 AM EDT): [...] for pain Addendum 845am 02/28/23 I called [facility] and he is scheduled for 2pm today [...] to register. Dyslipidemia 05/26/2022 Assessment & Plan (12/17/2024 12:39 PM EDT): -Lipid Profile: 09/10/24 TC 186; TG 86; HDL 46; LDL 123. -Continue Atorvastatin. Improve adherence. Reassured that it is safe for liver -Continue with lifestyle modifications. Assessment & Plan (12/12/2023 1:54 PM EDT): [...] lifestyle modifications. Depression 05/26/2022 Assessment & Plan (12/17/2024 10:33 AM EDT): -Patient is connected with behavioral health service and has been receiving counseling and medications from psychiatrist -Continue current medications: Sertraline and zolpidem Assessment & Plan (12/15/2023 5:24 AM EDT): -Patient is connected with behavioral health service and has been receiving counseling and medications from psychiatrist -Continue current medications: Sertraline and zolpidem Assessment & Plan (05/26/2022 6:52 PM EST): -Continue counseling -Continue current medications: Sertraline and zolpidem -Patient able to contract his safety today. History of substance use 05/26/2022 Tobacco use 05/26/2022 Assessment & Plan (12/17/2024 10:33 AM EDT): -Continue working on smoking cessation -Refer to CD[facility] for smoking cessation Assessment & Plan (12/12/2023 1:11 PM EDT): [...] Plan (12/12/2023 1:08 PM EDT): -Following with [facility] -Received steroid injection to R knee in Mar 2022 with good pain relief Assessment & Plan (05/26/2022 6:51 PM EST): -Following with [facility] -Received steroid injection to R knee in Mar 2022 with good pain relief History of latent tuberculosis 05/26/2022 Assessment & Plan (12/15/2023 5:20 AM EDT): -Pt states he received treatment about 8 years ago -Evaluated by [facility] in August 2022, prescribed rifampin 600 mg dialy for 4 months Assessment & Plan (05/26/2022 6:49 PM EST): -Pt states he received treatment about 8 years ago -Currently followed by [facility] -Will contact for their treatment plan Essential hypertension 05/14/2022 Assessment & Plan (12/17/2024 10:32 AM EDT): -Goal BP < 140/90 per JNC-8 [...] if any problem arises Assessment & Plan (12/12/2023 1:07 PM EDT): [...] of hepatitis C 05/14/2022 Assessment & Plan (12/17/2024 10:32 AM EDT): -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 -Prior to Tx, Fibrosis score 0. No US. -Most recent lab: 01/24/22 AST 18, ALT19, Hep C VL undetectable -Achieved cure -Hep A and B immunizations completed, but recent surface antibody was non- reactive. Will consider giving a booster in the future. Assessment & Plan (12/15/2023 5:16 AM EDT): [...] Encounters Date Type Department Care Team Description 12/17/2024 10:45 AM EDT Office Visit [facility] [address] [place] [address] Ira Andres MD Routine general medical examination at a health care facility (Primary Dx); Essential hypertension; Dyslipidemia; Mass of left testicle; Major depressive disorder, remission status unspecified, unspecified whether recurrent; Tobacco use; History of hepatitis C; Dietary counseling; Exercise counseling; Overweight; Leg swelling; Pain in both lower extremities; Colon cancer screening; Screening for diabetes mellitus 12/17/2024 Travel 12/16/[address] [address] Ira Andres MD chart prep 12/09/2024 Patient Outreach [address] [address] Ira Andres MD Pre-visit Planning (Pre-visit planning - LVM ) 11/07/2024 9:00 AM EDT Telemedicine [address] [address] Wan Calderon, FlavioD Essential hypertension (Primary Dx) 10/01/[address] [address] Ira Andres MD Appointment Request 10/01/[address] [address] Ira Andres MD INSURANCE CALL from Last 3 Months Immunizations Immunization Administration [...] your housing situation today? I have huong tiffanie 12/17/[address] you li [...] 19 12/17/2024 10:41 AM EDT Oxygen Saturation 99% 12/11/2023 1:47 PM EDT Inhaled Oxygen Concentration - - Weight 86.2 kg (190 lb 2 oz) 12/17/2024 10:41 AM EDT Height 180.3 cm (5' 11 ) 12/17/2024 10:41 AM EDT Body Mass Index 26.52 12/17/2024 10:41 AM EDT Plan of Treatment Upcoming Encounters Date Type Department Care Team (Late st Contact Info) Description 01/30/2025 9:00 AM EDT Medication Management [facility] [address] [place] [address] Wan Calderon, PharmD [address] [place] [address] Health Maintenance Due Date Last Done Comments CT Colonography 1965 Colonoscopy 1965 Colorectal Cancer Screening 1965 FIT DNA/Cologuard 1965 FIT 1965 FOBT 1965 Sigmoidoscopy 1965 Hepatitis B Vaccines (3 of 3 - 19+ 3-dose series) 02/05/2024 12/11/2023, 12/06/2022 COVID-19 Vaccine ( - 2024- season) 2024 06/04/2020, 05/14/2020 Influenza Vaccine (#1) 2024 02/17/2015, 2010 Depression Monitoring 06/16/2025 12/17/2024, 025 DTaP/Tdap/Td Vaccines (4 - Td or Tdap) 06/29/2025 06/30/2015, 09/13/2011, 03/15/2011 Alcohol/Substance Use Screening 12/17/2025 12/17/2024 Disability Screening 12/17/2025 12/17/2024 SDOH Screening 12/17/2025 12/17/2024 Tobacco Screening 12/17/2025 12/17/2024 Lipid Panel 09/10/2029 09/10/2024, 12/2023, 05/26/2022, Additional history exists RSV Patients and Patients Aged 60 years or older (1 - 1-dose 75+ series) 2040 HIV Screening Completed 06/16/2021, 09/01, 09/16/2020 Zoster Vaccines Completed 07/25/2022, 09/08/2020 Pneumococcal [...] 140/106(2024 11:04 AM EDT) No Wan Calderon, Aftab Quit using tobacco (cigarettes, smokeless, etc) Tobacco Use No change( 023 2:20 PM EST) No Wan Calderon PharmD Procedures Procedure Name Priority Date/Time Associated Diagnosis Comments LIPID PANEL, STANDARD Routine 09/10/2024 9:48 AM EDT HIV 1/2 ANTIGEN/ANTIBODY, FOURTH GENERATION W/RFL Routine 06/16/2021 10:40 AM EDT from Last 3 Months or Most Recently Relevant to Health Maintenance Results * (ABNORMAL) Lipid Panel, Standard (09/10/2024 9:48 AM EDT) Triglycerides 86 <150 mg/dL [facility] Comment:Desirable Triglyceri de: less than 150 mg/dLBorderline High Triglyceride 150-199 mg/dLHigh Triglyceride: 200-499 mg/dLVery High Triglyceride: greater than or equal to 5OO mg/dL Cholesterol 186 <200 mg/dL [facility] Comment:Desirable Cholestero l: less than 200 mg/dLBorderline High Cholesterol: 200-239 mg/dLHigh Cholesterol: greater than 239 mg/dL LDL Cholesterol Calculated 123(H) <100 mg/dL [facility] Comment:Desirable LDL: less than 100 mg/dLNear Optimal/Above Optimal LDL: 110- 129 mg/dLBorderline High LDL: 130-159 mg/dLHigh LDL: 160-189 mg/dLVery High LDL: greater than or equal to 190 mg/dL HDL Cholesterol 46 >40 mg/dL [facility] Comment:Desirable HDL: great er than 40 mg/dL Note: This HDL assay may give artificially low results in patients with liver disease. 09/10/2024 9:48 AM EDT 09/10/2024 9:48 AM EDT us Ira Andres MD LAB BLOOD ORDERABLES Final Resul t [facility] [address] [place] [phone] * HIV 1/2 ANTIGEN/ANTIBODY,FOURTH GENERATION W/RFL (06/16/2021 10:40 AM EDT) HIV-1/2 ANTIGEN AND ANTIBODIES, 4TH GENERATION W/ REFLEX NON-REACT SILVINO NON-REACT SILVINO [facility] Comment: HIV-1 antigen and HIV-1/HIV-2 [...] purpose. For additional information please refer to http://education.[employer]Kickz/faq/IAV586 (This link is being provided for informational/ educational purposes only.) The performance of this assay has not been clinically validated in patients less than 2 years old. 06/16/2021 10:4 0 AM EDT us Ira Andres MD LAB BLOOD ORDERABLES Final Resul t Performing Organization Address City/State/[facility] Co de Phone Number [facility] [address]where [address] from Last 3 Months or Most Recently Relevant to Health Maintenance Insurance [employer] Care Teams Water Pump Assembler Relationship Specialty Start Date End Date Ira Andres MD [address] [place] [address] PCP - General Family Medicine 06/16/21 Wan Calderon, FlavioD [address] [place] [address] Pharmacist Internal Medicine 03/08/22
--- OUTSIDE RECORDS SUMMARY | 2024-12-20 09:59 | XMS_ITS | Encounter Summary ---
Author Organization [employer] [facility] [employer] Address [address] [facility] [address] [place] [address] Care Team Providers Care Batt Packer Name Role Phone Ira Andres MD Primary Care Provider [phone] Wan Calderon PharmD Unavailable [phone] Reason for Referral * Consultation (Routine) - Canceled Specialty Diagnoses / Procedures Referred By Contac t Referred To Contact Pharmacy Diagnoses Essential hypertension Ira Andres MD [address] [place] [address] Phone: tel: fax: Referral ID Status Reason Start Date Expiration Date V isits Requested Visits Authorized [id number] Canceled Consult and Treat 12/12/2023 12/11/2024 6 6 Encounter Details Date Type Department Care Team (Late st Contact Info) Description 12/12/2023 Orders Only [facility] [address] [place], [place] [phone] Ira Andres MD [address] [place], [place] [phone] Essential hypertension (Primary Dx); Tobacco use Social [...] Description 01/30/2025 9:00 AM EDT Medication Management [facility] [address] [place] [address] Wan Calderon, PharmD [address] [place] [address] Scheduled Referrals Name Type Priority Associated Diagnoses Orde r Schedule Referral to Pharmacy CDTM Outpatient Referral Routine Essential hypertension Ordered: 12/12/2023 documented as of this encounter Goals Goal [...] documented as of this encounter Care Teams Batt Packer Relationship Specialty Start Date End Date Ira Andres MD [address] [place] [address] PCP - General Family Medicine 06/16/21 Wan Calderon, FlavioD [address] [place] [address] Pharmacist Internal Medicine 03/08/22 documented as of this encounter
--- OUTSIDE RECORDS SUMMARY | 2024-12-20 09:59 | XMS_ITS | Encounter Summary ---
Author Organization [facility] Address [address] [facility] [address]t [place] [address] Care Team Providers Care Automobile Mechanic Radiator Name Role Phone Ira Andres MD Primary Care Provider [phone] Wan Calderon PharmD Unavailable [phone] Encounter Details Date Type Department Care Team (Latest Contact Info) Description 12/17/2024 Travel Social History Tobacco Use Types Packs/Day Years [...] AM EDT documented as of this encounter Functional Status * Over the [...] Author Very difficult 12/17/2024 10:45 AM EDT Aleaxndra Leahy MA * Over the last 2 [...] A Trouble relaxing 3 12/17/2024 10:44 AM KAYLAT Sheba Leahy MA Being so restless that it is hard to sit still 3 12/17/2024 10:44 AM EDT Sheba Leahy M A Becoming easily annoyed or irritable 2 12/02 10:44 AM KAYLAT Sheba Leahy MA Feeling afraid as if somethi ng awful might happen 3 12/17/2024 10:44 AM EDT Sheba Leahy M A CHILANGO-7 Total Score 17 12/17/2024 10:44 AM Sheba Glez MA documented as of this encounter Plan of Treatment Upcoming Encounters Date Type Department Care Team (Late st Contact Info) Description 01/30/2025 9:00 AM EDT Medication Management [facility] [address] [place] [address] Wan Calderon PharmD [address] [place] [address] documented as of this encounter Goals Goal Patient Goal Type Associated Problems Recent Progress Patient-Stated? Author Blood Pressure < 140/90 Blood Pressure 140/106(2024 11:04 AM EDT) No Wan Calderon PharmD Quit using tobacco (cigarettes, smokeless, etc) Tobacco Use No change( 023 2:20 PM EST) No Wan Calderon PharmD documented as of this encounter Visit Diagnoses Not on filedocumented in this encounter Additional Health Concerns Assessment Noted Time PHQ-9 Depression Total Score: 13 025 10:45 AM EDT documented as of this encounter Care Teams Automobile Mechanic Radiator Relationship Specialty Start Date End Date Ira Andres MD [address] [place] [id number] PCP - General Family Medicine 06/16/21 Wan Calderon PharmD [address] [place] [phone] Pharmacist Internal Medicine 03/08/22 documented as of this encounter
--- OUTSIDE RECORDS SUMMARY | 2024-12-20 10:00 | XMS_ITS | Encounter Summary ---
Author Organization [employer] Address [address] [facility] 7t [place] [address] Care Team Providers Care Organ Tuner Name Role Phone Ira Andres MD Primary Care Provider [phone] Wan Calderon PharmD Unavailable [phone] Reason for Visit * Reason Onset Date Comments chart prep 12/16/2024 Encounter Details Date Type Department Care Team ([facility] st Contact Info) Description 12/16/2024 Telephone [facility] [address] [place], [place] [phone] Ira Andres MD [address] [place], [place] [phone] chart prep Social History Tobacco Use Types Packs/Day Years [...] AM EDT documented as of this encounter Miscellaneous Notes * Telephone Encounter - Howie Lopez MA - 12/16/2024 1:22 PM EDT Chart Prep Labs: done Images: done Referrals: not applicable Vaccines due: Covid, Flu, and Hep B Screenings: colonoscopy Overdue care gaps: SBIRT, SDOH, PHQ-9, CHILANGO-7, Oral health screening, and Disability screen documented in this encounter Plan of Treatment Upcoming Encounters Date Type Department Care Team (Late st Contact Info) Description 01/30/2025 9:00 AM EDT Medication Management [facility] [address] [place] [address] Wan Calderon, PharmD [address] [place] [address] documented as of this encounter Goals Goal Patient Goal Type Associated Problems Recent Progress Patient-Stated? Author Blood Pressure < 140/90 Blood Pressure 140/106(2024 11:04 AM EDT) No Calderon, Wan, PharmD Quit using tobacco (cigarettes, smokeless, etc) Tobacco Use No change( 023 2:20 PM EST) No Wan Calderon PharmD documented as of this encounter Visit Diagnoses Not on filedocumented in this encounter Additional Health Concerns Assessment Noted Time PHQ-9 Depression Total Score: 0 05/26/19 23 9:25 AM EST documented as of this encounter Care Teams Organ Tuner Relationship Specialty Start Date End Date Ira Andres MD [address] [place] [id number] PCP - General Family Medicine 06/16/21 Wan Calderon PharmD [address] [place] [phone] Pharmacist Internal Medicine 03/08/22 documented as of this encounter
[2024-12-20 11:50] LABS: Hemoglobin A1C 161.6431 umol/L; Total Hemoglobin (HGBA1C) 3960.0224 umol/L
[2024-12-20 12:13] LABS: Cholesterol 185 mg/dL (<200); HDL Cholesterol 44 mg/dL (>40); Triglycerides 111 mg/dL (<150)
[2024-12-20 12:21] LABS: Alanine Aminotransferase 29 U/L (0-40); Albumin Level 4.9 g/dL (3.5-5.0); Alkaline Phosphatase 63 U/L (39-117); Anion Gap 13 (12-20); Aspartate Amino Transferase 28 U/L (5-37); Blood Urea Nitrogen 14 mg/dL (9-16); Calcium 9.6 mg/dL (8.4-10.2); Carbon Dioxide 30 mmol/L (22-29); Chloride 103 mmol/L (96-108); Estimated Glomerular Filt Rate > 60; Potassium 4.3 mmol/L (3.3-5.1); Sodium 142 mmol/L (135-145); Total Protein 8.0 g/dL (6.5-8.0)
[2024-12-20 12:48] LABS: Reflex LDLD? No
== END 2024-12-20 09:28 | disposition home or self-care (01) ==
LOC: HO.HHCL 09:27
PROVIDERS: Urology; PCP Family Medicine; Visit Provider Family Medicine
DX: Z13.1 Encounter for screening for diabetes mellitus (principal); E78.5 Hyperlipidemia, unspecified; I10 Essential (primary) hypertension
CPT/HCPCS: 36415; 80053; 80061; 83036

== ENCOUNTER 2025-01-31 09:09 | Outpatient (REF) | payer MEDICAID, SELFPAY ==
--- OUTSIDE RECORDS SUMMARY | 2025-01-31 10:04 | XMS_ITS | Encounter Summary ---
Author Organization [employer] Address 75 [facility] 7t [place] [address] Care Team Providers Care Commercial Driver'S License Driver Name Role Phone Ira Andres MD Primary Care Provider [phone] Wan Calderon PharmD Unavailable [phone] Encounter Details Date Type Department Care Team (Latest Contact Info) Description 01/31/2025 Travel Social History Tobacco Use Types Packs/Day Years Used Date Smoking Tobacco: Every Day Cigarettes 0.5 22.8 Started: 2002 Passive Smoke Exposure: Current Smokeless [...] as of this encounter Plan of Treatment Not on file documented as of this encounter Goals Goal Patient Goal Type Associated Problems Recent Progress Patient-Stated? Author Blood Pressure < 140/90 Blood Pressure 144/90( 025 9:10 AM EDT) No Wan Calderon PharmD Quit using tobacco (cigarettes, smokeless, etc) Tobacco Use No change( 023 2:20 PM EST) No Wan Calderon PharmD documented as of this encounter Visit Diagnoses Not on filedocumented in this encounter Additional Health Concerns Assessment Noted Time PHQ-9 Depression Total Score: 13 025 10:45 AM EDT documented as of this encounter Care Teams Commercial Driver'S License Driver Relationship Specialty Start Date End Date Ira Andres MD [address] [place] [address] PCP - General Family Medicine 06/16/21 Wan Calderon PharmD [address] [place] [address] Pharmacist Internal Medicine 03/08/22 documented as of this encounter
--- OUTSIDE RECORDS SUMMARY | 2025-01-31 10:04 | XMS_ITS | Clinical Summary ---
Author Organization [employer] Address [address] [facility] 7t [place] [address] Care Team Providers Care Chairman President And Chief Executive Officer Name Role Phone Ira Andres MD Primary Care Provider [phone] Wan Calderon PharmD Unavailable [phone] Allergies Active Allergy Reactions Criticality Noted Date Comments Lisinopril Angioedema High 01/31/2025 Angioedema 12/31/2024 Medications zolpidem (Ambien) 10 MG tablet Take [...] MOUTH DAILY 90 tablet 1 5 Active aspirin 81 MG EC tablet Take 1 tablet (81 mg) by mouth Once per day. 90 tablet 3 5 Active lisinopril 40 MG tabletIndications :Essential hypertension Take 1 tablet (40 mg) by mouth Once per day. 30 tablet 11 5 02/01/20 25 Discontinu ed(Allergi c response) Active Problems Problem Noted Date Diagnosed Date Varicocele 12/29/2024 Assessment & Plan (12/29/2024 6:39 AM EDT): - Following with urologist, [facility], Dr. Vegas, last seen in May 2024 - Scrotum ultrasound on 04/25/2024: Large right hydrocele; left sided varicocele; simple bilateral epididymal head cysts; no testicular masses - Recommended annual US and visit Hydrocele 12/29/2024 Assessment & Plan (12/29/2024 6:39 AM EDT): - Following with urologist, [facility], Dr. Vegas, last seen in May 2024 - Scrotum ultrasound on 04/25/2024: Large right hydrocele; left sided varicocele; simple bilateral epididymal head cysts; no testicular masses - Recommended annual US and visit Dyslipidemia 05/26/2022 Assessment & Plan (12/29/2024 6:32 AM EDT): -Lipid Profile: September 2024 -Continue Atorvastatin (previously patient was concerned about its effect on liver) -Continue working on lifestyle modifications. Assessment & Plan (12/12/2023 1:54 [...] lifestyle modifications. Depression 05/26/2022 Assessment & Plan (12/29/2024 6:48 AM EDT): - PHQ-9 score 13; CHILANGO-7 score 17 on 12/17/2024 -Patient is connected with behavioral health service [...] 05/26/2022 Tobacco use 05/26/2022 Assessment & Plan (12/29/2024 6:50 AM EDT): -Continue working on smoking cessation - Patient has been working with our pharmacist for smoking cessation. Previously tried medication assisted treatment, but currently is not taking any medication Assessment & Plan (12/12/2023 1:11 PM EDT): -Continue working on smoking cessation -Refer to [facility] for smoking cessation Assessment & Plan (05/26/2022 6:50 PM EST): -Continue working on smoking cessation -Refer to [facility] for smoking cessation Positive QuantiFERON-TB Gold test 05/26/2022 Assessment & Plan (12/29/2024 6:46 AM EDT): -Pt was evaluated by TB clinic, last seen in August 2022. -Chest CT on August 18 showed clear lung ocampo and no hilar or mediastinal lymphadenopathy - Chest x-ray on 07/15/2021 showed increased interstitial markings and an density in right upper lung zone -Chest xray on 09/14/2021 and on April 05/2023 showed clear lung ocampo bilaterally -Treated with Rifampin 600 mg/d for 4 mo. Assessment & Plan (05/26/2022 9:41 AM EST): -Pt has been followed by TB clinic. -Pt was unable to submit sputum Cx -Seen by Dr. Smallwood in TB clinic on 04/05/22. Plan is to treat with rifampin for [address] Smallwood review CT. -Will check status of note from clinic Chronic pain of both knees 05/26/2022 Assessment & Plan (12/29/2024 6:48 AM EDT): -Following with [facility] -Received steroid injection to R knee in Mar 2022 with good pain relief Assessment & Plan (12/12/2023 1:08 PM EDT): -Following with [facility] -Received steroid injection to R knee in Mar 2022 with good pain relief Assessment & Plan (05/26/2022 6:51 PM EST): -Following with [facility] -Received steroid injection to R knee in Mar 2022 with good pain relief History of latent tuberculosis 05/26/2022 Assessment & Plan (12/29/2024 6:46 AM EDT): -Pt states he received treatment about 8 years ago -Evaluated by [facility] TB clinic in August 2022, prescribed rifampin 600 mg dialy for 4 months Assessment & Plan (12/15/2023 5:20 AM EDT): -Pt states he received treatment about 8 years ago -Evaluated by [facility] TB clinic in August 2022, prescribed rifampin 600 mg dialy for 4 months Assessment & Plan (05/26/2022 6:49 PM EST): -Pt states he received treatment about 8 years ago -Currently followed by [facility] TB clinic -Will contact for their treatment plan Essential hypertension 05/14/2022 Assessment & Plan (12/29/2024 6:31 AM EDT): -Goal BP < 130/80 per ACC/AHA guideline (Treatment threshold >= 140/90 ) -Today BP is not at goal, elevated -Treatment Hx: Change lisinopril - hctz 20/12.5 to lisinopril 20 mg daily and chlorthalidone 25 mg daily in 2020 -Continue working on lifestyle modifications -Continue chlorthalidone 25 mg daily -Continue lisinopril 40 mg daily -Continue [facility] visit Assessment & Plan (12/12/2023 1:07 PM EDT): [...] of hepatitis C 05/14/2022 Assessment & Plan (12/29/2024 6:34 AM EDT): -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 -Prior to Tx, Fibrosis score 0. No US. -Most recent lab: 01/24/22 AST 18, ALT19, Hep C VL undetectable -Achieved cure -Hep A and B immunizations completed, but recent surface antibody was non- reactive. Started Hep B series again. Assessment & Plan (12/15/2023 5:16 AM EDT): [...] cure -Hep A and B immunizations completed Resolved Problems Problem Noted Date Diagnosed Date Resolved Date Mass of left testicle 02/27/20232024 Assessment & Plan (12/17/2024 10:32 AM EDT): [...] for pain Addendum 845am 02/28/23 I called [facility] and he is scheduled for 2pm today for his scrotal ultrasound. To the ER for positive finding of testicular torsion. For appendicial torsion, he can be managed conservatively. For testicular mass, it depends on the nature of the mass. I called and spoke to Wan and his and they will go to the hospital at 145pm today to register. Encounters Date Type Department Care Team Description 01/31/2025 Travel 12/17/2024 10:45 AM EDT Office Visit [address] [address] Ira Andres MD Routine general medical examination at a health care facility (Primary Dx); Essential hypertension; Dyslipidemia; Mass of left testicle; Major depressive disorder, remission status unspecified, unspecified whether recurrent; Tobacco use; History of hepatitis C; Dietary counseling; Exercise counseling; Overweight; Leg swelling; Pain in both lower extremities; Colon cancer screening; Screening for diabetes mellitus; Varicocele; Hydrocele, unspecified hydrocele type; Positive QuantiFERON-TB Gold test; History of latent tuberculosis; Chronic pain of both knees 12/17/2024 Travel 12/16/[address] [address] Ira Andres MD chart prep 12/09/2024 Patient Outreach [address] [address] Ira Andres MD Pre-visit Planning (Pre-visit planning - LVM ) 11/07/2024 9:00 AM EDT Telemedicine [address] [address] Wan Calderon, PharmD Essential hypertension (Primary Dx) from Last 3 Months Immunizations Immunization Administration [...] Sign Reading Time Taken Comments Blood Pressure 144/90 01/31/2025 9:10 AM EDT Pulse 68 01/31/2025 9:10 AM EDT Temperature 36.9 C (98.4 F) 12/17/2024 10:41 AM EDT Respiratory Rate 19 12/17/2024 10:41 AM EDT Oxygen Saturation 99% 12/11/2023 1:47 PM EDT Inhaled Oxygen Concentration - - Weight 86.2 kg (190 lb 2 oz) 12/17/2024 10:41 AM EDT Height 180.3 cm (5' 11 ) 12/17/2024 10:41 AM EDT Body Mass Index 26.52 12/17/2024 10:41 AM EDT Plan of Treatment Health Maintenance Due Date Last Done Comments CT Colonography 1965 Colonoscopy 1965 Colorectal Cancer Screening 1965 FIT DNA/Cologuard 1965 FIT 1965 FOBT 1965 Sigmoidoscopy 1965 Hepatitis B Vaccines (3 of 3 - 19+ 3-dose series) 02/05/2024 12/11/2023, 12/06/2022 COVID-19 Vaccine (3 - 2024- season) 2024 06/04/2020, 05/14/2020 Influenza Vaccine (#1) 2024 02/17/2015, 2010 Depression Monitoring 06/16/2025 12/17/2024, 025 DTaP/Tdap/Td Vaccines (4 - Td or Tdap) 06/29/2025 06/30/2015, 09/13/2011, 03/15/2011 Alcohol/Substance Use Screening 12/17/2025 12/17/2024 Disability Screening 12/17/2025 12/17/2024 SDOH Screening 12/17/2025 12/17/2024 Tobacco Screening 12/17/2025 12/17/2024 Diabetes: Hemoglobin A1C 12/20/2025 025, 12/11/2023, 05/26/2022, Additional history exists Lipid Panel 12/20/2029 12/20/2024, 09/01, 12/11/2023, Additional history exists RSV Patients and Patients [...] 144/90( 025 9:10 AM EDT) No Wan Calderon, PharmD Quit using tobacco (cigarettes, smokeless, etc) Tobacco Use No change( 023 2:20 PM EST) No Wan Calderon, Aftab Procedures Procedure Name Priority Date/Time Associated Diagnosis Comments [facility] US LOWER EXTREMITY ARTERIAL DUPLEX BILATERAL WITH RERE Routine 01/09/2025 Leg swelling Pain in both lower extremities LIPID PANEL WITH REFLEX TO DIRECT LDL Routine 12/20/2024 9:32 AM EDT Essential hypertension Dyslipidemia COMPREHENSIVE METABOLIC PANEL Routine 12/20/2024 9:32 AM EDT Essential hypertension Dyslipidemia HEMOGLOBIN A1C Routine 12/20/2024 9:32 AM EDT Screening for diabetes mellitus HIV 1/2 ANTIGEN/ANTIBODY, FOURTH GENERATION W/RFL Routine 06/16/2021 10:40 AM EDT from Last 3 Months or Most Recently Relevant to Health Maintenance Results * Vascular US lower extremity arterial duplex bilateral with RERE (01/09/2025) Ira Andres MD CV VASCULAR PROCEDURES Final Res ult * (ABNORMAL) Lipid Panel with Reflex to Direct LDL (12/20/2024 9:32 AM EDT) Triglycerides 111 <150 mg/dL [facility] Comment:Desirable Triglyceri de: less than 150 mg/dLBorderline High Triglyceride 150-199 mg/dLHigh Triglyceride: 200-499 mg/dLVery High Triglyceride: greater than or equal to 5OO mg/dL Cholesterol 185 <200 mg/dL [facility] Comment:Desirable Cholestero l: less than 200 mg/dLBorderline High Cholesterol: 200-239 mg/dLHigh Cholesterol: greater than 239 mg/dL LDL Cholesterol Calculated 119(H) <100 mg/dL [facility] Comment:Desirable LDL: less than 100 mg/dLNear Optimal/Above Optimal LDL: 110- 129 mg/dLBorderline High LDL: 130-159 mg/dLHigh LDL: 160-189 mg/dLVery High LDL: greater than or equal to 190 mg/dL HDL Cholesterol 44 >40 mg/dL [facility] Comment:Desirable HDL: great er than 40 mg/dL Note: This HDL assay may give artificially low results in patients with liver disease. Blood 12/20/2024 9:32 AM EDT 12/20/2024 11:19 AM EDT us Ira Andres MD LAB BLOOD ORDERABLES Final Resul t [facility] [address] [place] [phone] * Hemoglobin A1c (12/20/2024 9:32 AM EDT) Hemoglobin A1c 5.9 <6.0 % [facility] Comment:Hemoglobin A1C Refer ence Range Adults: 4.8 - 6.0 % Non diabetic: < 6.0 % Goal: < 7.0 %Additional Action Suggested: > 8.0 %Note: Hemoglobin A1c results are invalid for patients with abnormal amounts of HbF. Blood transfusions may impact the HbA1c concentration in the patient sample. Estimated Average Glucose 123 mg/dL [facility] Comment:eAG = Estimated ave rage glucose which is %A1C expressed asaverage glucose, using the formula of the S9D-ImmtrpkHgsrhzo Glucose study (ADAG), Diabetes Care, Vol.31,#8,Nov. 2007 Blood Venous blood specimen / Unknown 12/20/2024 9:32 AM EDT 12/20/2024 11:12 AM EDT us Ira Andres MD LAB BLOOD ORDERABLES Final Resul t [facility] [address] [place] [address] [phone] * (ABNORMAL) Comprehensive Metabolic Panel (12/20/2024 9:32 AM EDT) Sodium 142 135 - 145 mmol/L [facility] Potassium 4.3 3.3 - 5.1 mmol/L [facility] Comment:Slight Hemolysis.Int erpret result with caution. Chloride 103 96 - 108 mmol/L [facility] Carbon Dioxide 30(H) 22 - 29 mmol/L [facility] Anion Gap 13 12 - 20 [facility] Urea Nitrogen (BUN) 14 9 - 16 mg/dL [facility] Creatinine, Serum 1.20 0.5 - 1.4 mg/dL [facility] Estimated Glomerular Filt Rate >60 [facility] Comment:Chronic Kidney Disea se: Estimated GFR < 60 mL/min/[id number] Kidney Disease: Estimated GFR < 15 mL/min/1.73m2 Glucose 93 60 - 115 mg/dL [facility] Calcium 9.6 8.4 - 10.2 mg/dL [facility] Bilirubin, Total 1.1(H) 0.0 - 1.0 mg/dL [facility] Aspartate Amino Transferase 28 5 - 37 U/L [facility] Comment:Slight Hemolysis.Int erpret result with caution. Alanine Aminotransferase 29 0 - 40 U/L [facility] Total Protein 8.0 6.5 - 8.0 g/dL [facility] Albumin Level 4.9 3.5 - 5.0 g/dL [facility] Alkaline Phosphatase 63 39 - 117 U/L [facility] Blood Venous blood specimen / Unknown 12/20/2024 9:32 AM EDT 12/20/2024 11:19 AM EDT us Ira Andres MD LAB BLOOD ORDERABLES Final Resul t Performing Organization Address City/[facility]/ZIP Co de Phone Number [facility] [address] [place] [phone] [phone] * HIV 1/2 ANTIGEN/ANTIBODY,FOURTH GENERATION W/RFL (06/16/2021 10:40 AM EDT) [facility] HIV-1/2 ANTIGEN AND ANTIBODIES, 4TH GENERATION W/ REFLEX NON-REACT SILVINO NON-REACT SILVINO [facility] Comment: HIV-1 antigen and HIV-1/HIV-2 [...] purpose. For additional information please refer to http://education.Net Zero AquaLife.Textingly/faq/EKE206 (This link is being provided for informational/ educational purposes only.) The performance of this assay has not been clinically validated in patients less than 2 years old. 06/16/2021 10:4 0 AM EDT us Ira Andres MD LAB BLOOD ORDERABLES Final Resul t [facility] [address] from Last 3 Months or Most Recently Relevant to Health Maintenance Insurance Care Teams Chairman President And Chief Executive Officer Relationship Specialty Start Date End Date Ira Andres MD [address] [place] [address] PCP - General Family Medicine 06/16/21 Wan Calderon, PharmD [address] [place] [address] Pharmacist Internal Medicine 03/08/22
--- OUTSIDE RECORDS SUMMARY | 2025-01-31 10:04 | XMS_ITS | Encounter Summary ---
Author Organization [employer] Address 75 [facility] 7t [place] [address] Care Team Providers Care Child Caregiver Private Home Name Role Phone Ira Andres MD Primary Care Provider [phone] Wan Calderon PharmD Unavailable [phone] Reason for Visit * Reason Comments Med Refill Encounter Details Date Type Department Care Team ([facility] st Contact Info) Description 09/12/2022 Refill [facility] [address] [place], [place] [phone] Wan Calderon, PharmD [address] [place] [address] Essential hypertension Social History Tobacco Use Types Packs/Day Years Used Date Smoking Tobacco: Every Day Cigarettes 0.5 22.8 Started: 2002 Passive Smoke Exposure: Never Smokeless [...] 025 9:10 AM EDT) No Wan Calderon, Aftab Quit [...] documented as of this encounter Care Teams Child Caregiver Private Home Relationship Specialty Start Date End Date Ira Andres MD [address] [place] [address] PCP - General Family Medicine 06/16/21 Wan Calderon, Aftab [address] [place] [phone] Pharmacist Internal Medicine 03/08/22 documented as of this encounter
--- OUTSIDE RECORDS SUMMARY | 2025-01-31 10:04 | XMS_ITS | Encounter Summary ---
Author Organization [employer] Address [address] [facility] [address] [address] Care Team Providers Care Planner Intern Name Role Phone Ira Andres MD Primary Care Provider Wan Calderon PharmD Unavailable [phone] Reason for Referral * Consultation (Routine) - Authorized Specialty Diagnoses / Procedures Referred By Contac t Referred To Contact Pharmacy Diagnoses Essential hypertension Tobacco use Ira Andres MD [address] [place] [address] Phone: tel: fax: Referral ID Status Reason Start Date Expiration Date Visits Requested Visits Authorized [id number] Authorized Consult and Treat 02/13/2024 02/12/2025 6 6 Encounter Details Date Type Department Care Team (Late st Contact Info) Description 02/13/2024 Orders Only [facility] [address] [place], [place] [phone] Ira Andres MD [address] [place], [place] [phone] Essential hypertension (Primary Dx); Tobacco use Social [...] as of this encounter Plan of Treatment Scheduled Referrals Name Type Priority Associated Diagnoses [...] 023 2:20 PM EST) No Wan Calderon, PharmD documented as of this encounter Visit Diagnoses Diagnosis Essential hypertension- Primary Unspecified essential hypertension Tobacco use documented in this encounter Additional Health Concerns Assessment Noted Time PHQ-9 Depression Total Score: 0 05/26/19 9:25 AM EST documented as of this encounter Care Teams Planner Intern Relationship Specialty Start Date End Date Ira Andres MD [address] [place] [address] PCP - General Family Medicine 06/16/21 Wan Calderon PharmD [address] [place] [address] Pharmacist Internal Medicine 03/08/22 documented as of this encounter
--- OUTSIDE RECORDS SUMMARY | 2025-01-31 10:04 | XMS_ITS | Encounter Summary ---
Author Organization [employer] Address 75 [facility] [address] [place] [address] Care Team Providers Care Knockdown Worker Name Role Phone Ira Andres MD Primary Care Provider [phone] Wan Calderon PharmD Unavailable [phone] Reason for Referral * Consultation (Routine) - Canceled Specialty Diagnoses / Procedures Referred By Contac t Referred To Contact Pharmacy Diagnoses Essential hypertension Ira Andres MD [address] [place] [address] Phone: tel: fax: Referral ID Status Reason Start Date Expiration Date V isits Requested Visits Authorized [id number] Canceled Consult and Treat 12/12/2023 12/11/2024 6 6 Encounter Details Date Type Department Care Team (Late st Contact Info) Description 12/12/2023 Orders Only [facility] [address] [place], [place] [phone] Ira Andres MD [address] [place], [place] [phone] Essential hypertension (Primary Dx); Tobacco use Social [...] documented as of this encounter Care Teams Knockdown Worker Relationship Specialty Start Date End Date Ira Andres MD [address] [place] [address] PCP - General Family Medicine 06/16/21 Wan Calderon, Aftab [address] [place] [address] Pharmacist Internal Medicine 03/08/22 documented as of this encounter
[2025-01-31 11:54] LABS: Alkaline Phosphatase 63 U/L (39-117); Anion Gap 11 (12-20); Blood Urea Nitrogen 17 mg/dL (9-16); Calcium 10.2 mg/dL (8.4-10.2); Carbon Dioxide 33 mmol/L (22-29); Chloride 101 mmol/L (96-108); Estimated Glomerular Filt Rate 59; Potassium 4.2 mmol/L (3.3-5.1); Sodium 141 mmol/L (135-145)
== END 2025-01-31 09:10 | disposition home or self-care (01) ==
LOC: HO.HHCL 09:09
PROVIDERS: Urology; PCP Family Medicine; Visit Provider Family Medicine
DX: N50.9 Disorder of male genital organs, unspecified (principal); I10 Essential (primary) hypertension
CPT/HCPCS: 36415; 80048; 84075